=== PATIENT | male | born 1965 | race African-American/Black ===

== ENCOUNTER 2018-08-27 08:30 | Inpatient (IN) | payer OTHER ==
--- NOTE | 2018-08-27 08:55 | HP ---
CIWA Score Nausea/Vomitin Muscle Tremors: 2 Anxiety: 2 Agitation: 2 Paroxysmal Sweats: 1-Minimal Palms Moist Orientation: 0-Oriented Tacttile Disturbances: 1-Very Mild Itch/Numbness Auditory Disturbances: 1-Very Mild Visual Disturbances: 0-None Headache: 2-Mild CIWA-Ar Total Score: 13 - Admission Criteria OASAS Guidelines: Admission for Medically Managed Detox: Requires at least one of the followin. CIWA greater than 12 2. Seizures within the past 24 hours 3. Delirium tremens within the past 24 hours 4. Hallucinations within the past 24 hours 5. Acute intervention needed for co occurring medical disorder 6. Acute intervention needed for co occurring psychiatric disorder 7. Severe withdrawal that cannot be handled at a lower level of care (continued vomiting, continued diarrhea, abnormal vital signs) requiring intravenous medication and/or fluids 8. Patient presents the following: CIWA greater than 12 Admission Criteria Met: Admission criteria met Admission ROS S - HPI Chief Complaint: i need help to stop drinking alcohol and cocaine Allergies/Adverse Reactions: Allergies Allergy/AdvReac Type Severity Reaction Status Date / Time penicillin G Allergy Severe cramps Verified 08/27/18 09:36 History of Present Illness: this 53 years old male with alcohol and cocaine dependence,seeking detox, withdrawal symptom last night,clear to come in for detox, multiple admissions in detox but keep relapsing coughing for 2 week,and removal of splinter of right foot on tues 08/23/18 , supposed to take antibiotics but non compliance smoke 10 cigarette weight loss hiv since 2016,follow up with md at urgent care history of depression,no medication longest period of sobriety 1 year plan to go to rehab after detox - Ebola screening Have you traveled outside of the country in the last 21 days: No (N) Have you had contact with anyone from an Ebola affected area: No Do you have a fever: No - Review of Systems Constitutional: Loss of Appetite, Night Sweats, Changes in sleep, Weakness, Unintentional Wgt. Loss EENT: reports: Tearing, Nose Congestion, Other (coughing for 2 weeks) Respiratory: reports: Cough Cardiac: reports: No Symptoms Reported GI: reports: Nausea, Poor Appetite, Abdominal cramping : reports: No Symptoms Reported Musculoskeletal: reports: Back Pain, Muscle Pain Integumentary: reports: Dryness Neuro: reports: Headache, Tremors Endocrine: reports: No Symptoms Reported Hematology: reports: No Symptoms Reported, Other (his) Psychiatric: reports: No Sypmtoms Reported, Judgement Intact, Mood/Affect Appropiate, Orientated x3, Depressed Other Systems: Reviewed and Negative Patient History - Patient Medical History Hx Anemia: No Hx Asthma: No Hx Chronic Obstructive Pulmonary Disease (COPD): No Hx Cancer: No Hx Cardiac Disorders: No Hx Congestive Heart Failure: No Hx Hypertension: No Hx Hypercholesterolemia: No Hx Pacemaker: No HX Cerebrovascular Accident: No Hx Seizures: No Hx Dementia: No Hx Diabetes: No Hx Gastrointestinal Disorders: No Hx Liver Disease: No Hx Genitourinary Disorders: No Hx Sexually Transmitted Disorders: Yes (syphilis treated 1999) Hx Renal Disease (ESRD): No Hx Thyroid Disease: No Hx Human Immunodeficiency Virus (HIV): Yes (since 2015) Hx Hepatitis C: No Hx Depression: Yes Hx Suicide Attempt: No Hx Bipolar Disorder: No Hx Schizophrenia: No Other Medical History: no suicidal,no homicidal,insomnia - Patient Surgical History Past Surgical History: Yes Hx Neurologic Surgery: No Hx Cataract Extraction: No Hx Cardiac Surgery: No Hx Lung Surgery: No Hx Breast Surgery: No Hx Breast Biopsy: No Hx Abdominal Surgery: No Hx Appendectomy: Yes (at age of [age] years old) Hx Cholecystectomy: No Hx Genitourinary Surgery: No Hx Section: No Hx Orthopedic Surgery: No Anesthesia Reaction: No - PPD History Documented Results: Positive w/o proof Implanted On Prior [facility] Admission?: No PPD to be Administered?: No - Smoking Cessation Smoking history: Current every day smoker Have you smoked in the past 12 months: Yes Aproximately how many cigarettes per day: 10 Hx Chewing Tobacco Use: No Initiated information on smoking cessation: Yes 'Breaking Loose' booklet given: 08/27/18 - Substance & Tx. History Hx Alcohol Use: Yes Hx Substance Use: Yes Substance Use Type: Alcohol, Cocaine Hx Substance Use Treatment: Yes ([facility] 08/05/15 to 08/13/15) - Substances Abused Alcohol Route: Oral Frequency: Daily Amount used: 1 pint of vodka/6 packs of 12 ozs of beer Age of first use: 12 Date of Last Use: 08/26/18 Cocaine Route: Smoking Frequency: Daily Amount used: 100$ Age of first use: 32 Date of Last Use: 08/26/18 Family Disease History - Family Disease History Family History: Denies Admission Physical Exam [facility] - Vital Signs Vital Signs: Vital Signs Temperature 98.1 F 08/27/18 09:06 Pulse Rate 18 L 08/27/18 09:06 Respiratory Rate 74 H 08/27/18 09:06 Blood Pressure 129/71 08/27/18 09:06 O2 Sat by Pulse Oximetry (%) - Physical General Appearance: Yes: Moderate Distress, Tremorous, Irritable, Sweating, Anxious HEENTM: Yes: Normal ENT Inspection, BOB, Pharynx Normal Respiratory: Yes: Lungs Clear, Normal Breath Sounds, No Respiratory Distress Neck: Yes: Within Normal Limits, Supple, Trachea in good position Breast: Yes: Within Normal Limits, Axillae mass/lump present Cardiology: Yes: Regular Rhythm, Regular Rate, S1, S2 Abdominal: Yes: Within Normal Limits, Normal Bowel Sounds, Non Tender, Soft, Surgical Scar Genitourinary: Yes: Within Normal Limits Back: Yes: Muscle Spasm Musculoskeletal: Yes: Back pain, Muscle Pain Extremities: Yes: Tremors, Other (puncture wound of right foot plantar surface,s /p removal of slinter at [place] on 08/23/18) Neurological: Yes: 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 (4) Nicotine dependence Current Visit: No Status: Chronic Qualifiers: Nicotine product type: cigarettes (5) PPD positive Current Visit: No Status: Chronic (6) Puncture wound of right foot Current Visit: Yes Status: Acute (7) Foreign body in right foot Current Visit: Yes Status: Acute (8) History of syphilis Current Visit: Yes Status: Acute (9) Depression Current Visit: Yes Status: Acute (10) Weight loss Current Visit: Yes Status: Acute Cleared for Admission S - Detox or Rehab [facility] Level of Care: Medically Managed Detox Regimen/Protocol: Librium S Breath Alcohol Content Breath Alcohol Content: 0 Inpatient Rehab Admission - Rehab Decision to Admit Inpatient rehab admission?: No
[2018-08-27 09:07] VITALS: BMI 29.5
[2018-08-27] MEDS ORDERED: chlordiazePOXIDE HCL 25 MG CAPSULE PO PRN (09:41)
[2018-08-27] MEDS ORDERED: MENTHOL/PHENOL 1 EACH UD MM PRN (09:42)
[2018-08-27] MEDS ORDERED: MAGNESIUM HYDROX 2400MG/30ML ORAL SUSPENSION 30 ML CUP PO PRN (09:42)
[2018-08-27] MEDS ORDERED: ACETAMINOPHEN 325 MG TABLET (FP) PO PRN (09:42)
[2018-08-27] MEDS ORDERED: P-EPHED 60MG/TRIPROLIDI 2.5MG TABLET PO PRN (09:42)
[2018-08-27] MEDS ORDERED: guaiFENesin/D-METHORPHAN HB 10 ML UNIT-DOSE CUPS PO PRN (09:42)
[2018-08-27] MEDS ORDERED: hydrOXYzine PAMOATE 50 MG CAPSULE (FP) PO PRN (09:42)
[2018-08-27] MEDS ORDERED: MAG HYDROX/AL HYDROX/SIMETH 30 ML UNIT-DOSE CUP PO PRN (09:42)
[2018-08-27] MEDS ORDERED: LOPERAMIDE HCL 2 MG CAPSULE PO PRN (09:42)
[2018-08-27] MEDS ORDERED: MAGNESIUM CITRATE 300 ML BOTTLE PO PRN (09:42)
[2018-08-27] MEDS ORDERED: IBUPROFEN 400 MG TABLET (FP) PO PRN (09:42)
[2018-08-27] MEDS: BACITRACIN 0.9 GM PACKET TP SCH ×2 (10:52→22:17)
[2018-08-27] MEDS: chlordiazePOXIDE HCL 25 MG CAPSULE PO SCH ×3 (10:52→22:18)
[2018-08-27] MEDS: PRENATAL VITAMINS W/ FOLIC ACID TABLET (FP) PO SCH (10:53)
[2018-08-27] MEDS: SULFAMETHOXAZOLE/TRIMETHOPRIM 800MG/160MG D.S. TABLET PO SCH ×2 (10:53→22:17)
[2018-08-27] MEDS: MELATONIN 5 MG TABLETS PO PRN (22:17)
[2018-08-27] MEDS: THIAMINE HCL 100 MG TABLET (FP) PO SCH (22:18)
[2018-08-28] MEDS: chlordiazePOXIDE HCL 25 MG CAPSULE PO SCH ×4 (05:29→22:15)
[2018-08-28] MEDS: PRENATAL VITAMINS W/ FOLIC ACID TABLET (FP) PO SCH (10:16)
[2018-08-28] MEDS: BACITRACIN 0.9 GM PACKET TP SCH ×2 (10:16→22:15)
[2018-08-28] MEDS: SULFAMETHOXAZOLE/TRIMETHOPRIM 800MG/160MG D.S. TABLET PO SCH ×2 (10:16→22:15)
[2018-08-28 10:51] LABS: HEMATOCRIT 41.6 % (35.4-49); HEMOGLOBIN 14.2 GM/dL (11.7-16.9); MCH 29.4 pg (25.7-33.7); MCHC 34.1 g/dl (32.0-35.9); MEAN PLT VOLUME 9.8 fl (7.5-11.1); PLATELET COUNT 207 K/MM3 (134-434); RBC 4.84 M/mm3 (4.00-5.60); RDW 12.8 % (11.9-15.9); WHITE BLOOD COUNT 4.6 K/mm3 (4.0-10.0)
[2018-08-28 11:11] LABS: ALBUMIN 3.4 g/dl (3.4-5.0); ALK PHOS 93 U/L (45-117); ANION GAP 8 MMOL/L (8-16); BILIRUBIN,TOTAL 0.7 mg/dL (0.2-1); BLOOD UREA NITROGEN 10 mg/dL (7-18); CHLORIDE 110 mmol/L (98-107); CO2 21 mmol/L (21-32); GLUCOSE,RANDOM 104 mg/dL (74-106); SGOT/AST 17 U/L (15-37); SGPT/ALT 29 U/L (13-61); SODIUM 139 mmol/L (136-145)
[2018-08-28 11:26] LABS: RPR REACTIVE 1:1 (NONREACTIVE)
[2018-08-28 11:27] LABS: TREPONEMA ANTIBODY PREVIOUSLY REACTIVE (NONREACTIVE)
[2018-08-28] MEDS ORDERED: FLU VACCINE QUAD 60 MCG/0.5 ML (MDV 18-19) IM ONE (12:00)
--- NOTE | 2018-08-28 14:35 | PN ---
S CIWA - CIWA Score Nausea/Vomitin-No Nausea/No Vomiting Muscle Tremors: 3 Anxiety: 2 Agitation: 2 Paroxysmal Sweats: 1-Minimal Palms Moist Orientation: 0-Oriented Tacttile Disturbances: 0-None Auditory Disturbances: 0-None Visual Disturbances: 0-None Headache: 1-Very Mild CIWA-Ar Total Score: 9 S Progress Note (SOAP) Subjective: tremor restlessness anxiety sweating Objective: 08/28/18 14:34 Vital Signs Temperature 98 F 08/28/18 14:33 Pulse Rate 75 08/28/18 14:33 Respiratory Rate 20 08/28/18 14:33 Blood Pressure 106/61 08/28/18 14:33 O2 Sat by Pulse Oximetry (%) Laboratory Last Values WBC 4.6 K/mm3 (4.0-10.0) 08/28/18 07:35 RBC 4.84 M/mm3 (4.00-5.60) 08/28/18 07:35 Hgb 14.2 GM/dL (11.7-16.9) 08/28/18 07:35 Hct 41.6 % (35.4-49) 08/28/18 07:35 MCV 86.0 fl (80-96) 08/28/18 07:35 MCH 29.4 pg (25.7-33.7) 08/28/18 07:35 MCHC 34.1 g/dl (32.0-35.9) 08/28/18 07:35 RDW 12.8 % (11.9-15.9) 08/28/18 07:35 Plt Count 207 K/MM3 (134-434) 08/28/18 07:35 MPV 9.8 fl (7.5-11.1) 08/28/18 07:35 Sodium 139 mmol/L (136-145) 08/28/18 07:35 Potassium 4.0 mmol/L (3.5-5.1) 08/28/18 07:35 Chloride 110 mmol/L (98-107) H 08/28/18 07:35 Carbon Dioxide 21 mmol/L (21-32) 08/28/18 07:35 Anion Gap 8 MMOL/L (8-16) 08/28/18 07:35 BUN 10 mg/dL (7-18) 08/28/18 07:35 Creatinine 1.0 mg/dL (0.55-1.3) 08/28/18 07:35 Creat Clearance w eGFR > 60 (>60) 08/28/18 07:35 Random Glucose 104 mg/dL (74-106) 08/28/18 07:35 Calcium 8.0 mg/dL (8.5-10.1) L 08/28/18 07:35 Total Bilirubin 0.7 mg/dL (0.2-1) 08/28/18 07:35 AST 17 U/L (15-37) 08/28/18 07:35 ALT 29 U/L (13-61) 08/28/18 07:35 Alkaline Phosphatase 93 U/L (45-117) 08/28/18 07:35 Total Protein 7.0 g/dl (6.4-8.2) 08/28/18 07:35 Albumin 3.4 g/dl (3.4-5.0) 08/28/18 07:35 RPR Titer Reactive 1:1 (NONREACTIVE) H 08/28/18 07:35 T.pallidum Ab (MHA) Previously reactive (NONREACTIVE) 08/28/18 07:35 lab noted syphilis low Ca++ Assessment: 08/28/18 14:35 alcohol withdrawal sx hypocalcemia Plan: continue detox oscal bid
[2018-08-28] MEDS: THIAMINE HCL 100 MG TABLET (FP) PO SCH (22:15)
[2018-08-28] MEDS: CALCIUM 250MG/VIT-D 125 UNITS 1 COMBO TABLET PO SCH (22:16)
[2018-08-29] MEDS: chlordiazePOXIDE HCL 25 MG CAPSULE PO SCH (05:12)
--- NOTE | 2018-08-29 09:45 | PN ---
S CIWA - CIWA Score Nausea/Vomitin-No Nausea/No Vomiting Muscle Tremors: 2 Anxiety: 3 Agitation: 2 Paroxysmal Sweats: 1-Minimal Palms Moist Orientation: 0-Oriented Tacttile Disturbances: 0-None Auditory Disturbances: 0-None Visual Disturbances: 0-None Headache: 0-None Present CIWA-Ar Total Score: 8 BHS Progress Note (SOAP) Subjective: tremor sweating anxious trouble concentrate Objective: 08/29/18 09:46 Vital Signs Temperature 96.5 F L 08/29/18 09:23 Pulse Rate 75 08/29/18 09:23 Respiratory Rate 18 08/29/18 09:23 Blood Pressure 119/76 08/29/18 09:23 O2 Sat by Pulse Oximetry (%) Laboratory Last Values WBC 4.6 K/mm3 (4.0-10.0) 08/28/18 07:35 RBC 4.84 M/mm3 (4.00-5.60) 08/28/18 07:35 Hgb 14.2 GM/dL (11.7-16.9) 08/28/18 07:35 Hct 41.6 % (35.4-49) 08/28/18 07:35 MCV 86.0 fl (80-96) 08/28/18 07:35 MCH 29.4 pg (25.7-33.7) 08/28/18 07:35 MCHC 34.1 g/dl (32.0-35.9) 08/28/18 07:35 RDW 12.8 % (11.9-15.9) 08/28/18 07:35 Plt Count 207 K/MM3 (134-434) 08/28/18 07:35 MPV 9.8 fl (7.5-11.1) 08/28/18 07:35 Sodium 139 mmol/L (136-145) 08/28/18 07:35 Potassium 4.0 mmol/L (3.5-5.1) 08/28/18 07:35 Chloride 110 mmol/L (98-107) H 08/28/18 07:35 Carbon Dioxide 21 mmol/L (21-32) 08/28/18 07:35 Anion Gap 8 MMOL/L (8-16) 08/28/18 07:35 BUN 10 mg/dL (7-18) 08/28/18 07:35 Creatinine 1.0 mg/dL (0.55-1.3) 08/28/18 07:35 Creat Clearance w eGFR > 60 (>60) 08/28/18 07:35 Random Glucose 104 mg/dL (74-106) 08/28/18 07:35 Calcium 8.0 mg/dL (8.5-10.1) L 08/28/18 07:35 Total Bilirubin 0.7 mg/dL (0.2-1) 08/28/18 07:35 AST 17 U/L (15-37) 08/28/18 07:35 ALT 29 U/L (13-61) 08/28/18 07:35 Alkaline Phosphatase 93 U/L (45-117) 08/28/18 07:35 Total Protein 7.0 g/dl (6.4-8.2) 08/28/18 07:35 Albumin 3.4 g/dl (3.4-5.0) 08/28/18 07:35 RPR Titer Reactive 1:1 (NONREACTIVE) H 08/28/18 07:35 T.pallidum Ab (MHA) Previously reactive (NONREACTIVE) 08/28/18 07:35 lab noted Assessment: 08/29/18 09:47 alcohol withdrawal sx hiv Plan: continue detox encourage hiv medication adherence keep medication list in wallet bring-in medication list and bottle of medication to aftercare appointment update medication list when change of medication
[2018-08-29] MEDS: SULFAMETHOXAZOLE/TRIMETHOPRIM 800MG/160MG D.S. TABLET PO SCH ×2 (10:17→22:08)
[2018-08-29] MEDS: PRENATAL VITAMINS W/ FOLIC ACID TABLET (FP) PO SCH (10:17)
[2018-08-29] MEDS: CALCIUM 250MG/VIT-D 125 UNITS 1 COMBO TABLET PO SCH ×2 (10:18→22:08)
[2018-08-29] MEDS: chlordiazePOXIDE 5 MG CAPSULE PO SCH ×3 (10:18→22:09)
[2018-08-29] MEDS: BACITRACIN 0.9 GM PACKET TP SCH ×2 (12:03→22:08)
[2018-08-29] MEDS: THIAMINE HCL 100 MG TABLET (FP) PO SCH (22:08)
[2018-08-29] MEDS: MELATONIN 5 MG TABLETS PO PRN (22:08)
[2018-08-30] MEDS: chlordiazePOXIDE 5 MG CAPSULE PO SCH (06:01)
[2018-08-30 09:19] VITALS: BP 106/60; PULSE 73; TEMP 97.9
--- NOTE | 2018-08-30 09:51 | PN ---
S CIWA - CIWA Score Nausea/Vomitin-No Nausea/No Vomiting Muscle Tremors: 1-None Visible, but [place] Anxiety: 1-Mildly Anxious Agitation: 1-Slight > Activity Paroxysmal Sweats: 1-Minimal Palms Moist Orientation: 0-Oriented Tacttile Disturbances: 0-None Auditory Disturbances: 0-None Visual Disturbances: 0-None Headache: 1-Very Mild CIWA-Ar Total Score: 5 B[facility] Progress Note (SOAP) Subjective: feeling better less tremor mild sweating sleep better at night more energy social with peers in day room Objective: 08/30/18 09:52 Vital Signs Temperature 97.9 F 08/30/18 09:18 Pulse Rate 73 08/30/18 09:18 Respiratory Rate 18 08/30/18 09:18 Blood Pressure 106/60 08/30/18 09:18 O2 Sat by Pulse Oximetry (%) Laboratory Last Values WBC 4.6 K/mm3 (4.0-10.0) 08/28/18 07:35 RBC 4.84 M/mm3 (4.00-5.60) 08/28/18 07:35 Hgb 14.2 GM/dL (11.7-16.9) 08/28/18 07:35 Hct 41.6 % (35.4-49) 08/28/18 07:35 MCV 86.0 fl (80-96) 08/28/18 07:35 MCH 29.4 pg (25.7-33.7) 08/28/18 07:35 MCHC 34.1 g/dl (32.0-35.9) 08/28/18 07:35 RDW 12.8 % (11.9-15.9) 08/28/18 07:35 Plt Count 207 K/MM3 (134-434) 08/28/18 07:35 MPV 9.8 fl (7.5-11.1) 08/28/18 07:35 Sodium 139 mmol/L (136-145) 08/28/18 07:35 Potassium 4.0 mmol/L (3.5-5.1) 08/28/18 07:35 Chloride 110 mmol/L (98-107) H 08/28/18 07:35 Carbon Dioxide 21 mmol/L (21-32) 08/28/18 07:35 Anion Gap 8 MMOL/L (8-16) 08/28/18 07:35 BUN 10 mg/dL (7-18) 08/28/18 07:35 Creatinine 1.0 mg/dL (0.55-1.3) 08/28/18 07:35 Creat Clearance w eGFR > 60 (>60) 08/28/18 07:35 Random Glucose 104 mg/dL (74-106) 08/28/18 07:35 Calcium 8.0 mg/dL (8.5-10.1) L 08/28/18 07:35 Total Bilirubin 0.7 mg/dL (0.2-1) 08/28/18 07:35 AST 17 U/L (15-37) 08/28/18 07:35 ALT 29 U/L (13-61) 08/28/18 07:35 Alkaline Phosphatase 93 U/L (45-117) 08/28/18 07:35 Total Protein 7.0 g/dl (6.4-8.2) 08/28/18 07:35 Albumin 3.4 g/dl (3.4-5.0) 08/28/18 07:35 RPR Titer Reactive 1:1 (NONREACTIVE) H 08/28/18 07:35 T.pallidum Ab (MHA) Previously reactive (NONREACTIVE) 08/28/18 07:35 lab noted Assessment: 08/30/18 09:52 mild alcohol withdrawal sx low Ca++ Plan: continue detox oscal continue encourage calcium rich food or over the counter calcium supplement also follow up with infectious disease specialist with calcium serum level
[2018-08-30] MEDS: PRENATAL VITAMINS W/ FOLIC ACID TABLET (FP) PO SCH ×2 (10:29→10:35)
[2018-08-30] MEDS: SULFAMETHOXAZOLE/TRIMETHOPRIM 800MG/160MG D.S. TABLET PO SCH ×2 (10:29→10:37)
[2018-08-30] MEDS: CALCIUM 250MG/VIT-D 125 UNITS 1 COMBO TABLET PO SCH ×2 (10:29→10:34)
[2018-08-30] MEDS: BACITRACIN 0.9 GM PACKET TP SCH (10:29)
[2018-08-30] MEDS ORDERED: chlordiazePOXIDE HCL 10 MG CAPSULE PO SCH (11:00)
--- NOTE | 2018-08-30 11:11 | DS ---
[facility] Detox Discharge Summary Admission Date: 08/27/18 Discharge Date: 08/30/18 - History Present History: Alcohol Dependence - Physical Exam Results Vital Signs: Vital Signs Temperature 97.9 F 08/30/18 09:18 Pulse Rate 73 08/30/18 09:18 Respiratory Rate 18 08/30/18 09:18 Blood Pressure 106/60 08/30/18 09:18 O2 Sat by Pulse Oximetry (%) Pertinent Admission Physical Exam Findings: 53 years old male admitted on 08/27/18 for alcohol withdrawal stabilization feeling better today preferred begin alcohol rehab today, reported that alcohol withdrawal symptoms are manageable multidisciplinary team effort aftercare [facility] Laboratory Last Values WBC 4.6 K/mm3 (4.0-10.0) 08/28/18 07:35 RBC 4.84 M/mm3 (4.00-5.60) 08/28/18 07:35 Hgb 14.2 GM/dL (11.7-16.9) 08/28/18 07:35 Hct 41.6 % (35.4-49) 08/28/18 07:35 MCV 86.0 fl (80-96) 08/28/18 07:35 MCH 29.4 pg (25.7-33.7) 08/28/18 07:35 MCHC 34.1 g/dl (32.0-35.9) 08/28/18 07:35 RDW 12.8 % (11.9-15.9) 08/28/18 07:35 Plt Count 207 K/MM3 (134-434) 08/28/18 07:35 MPV 9.8 fl (7.5-11.1) 08/28/18 07:35 Sodium 139 mmol/L (136-145) 08/28/18 07:35 Potassium 4.0 mmol/L (3.5-5.1) 08/28/18 07:35 Chloride 110 mmol/L (98-107) H 08/28/18 07:35 Carbon Dioxide 21 mmol/L (21-32) 08/28/18 07:35 Anion Gap 8 MMOL/L (8-16) 08/28/18 07:35 BUN 10 mg/dL (7-18) 08/28/18 07:35 Creatinine 1.0 mg/dL (0.55-1.3) 08/28/18 07:35 Creat Clearance w eGFR > 60 (>60) 08/28/18 07:35 Random Glucose 104 mg/dL (74-106) 08/28/18 07:35 Calcium 8.0 mg/dL (8.5-10.1) L 08/28/18 07:35 Total Bilirubin 0.7 mg/dL (0.2-1) 08/28/18 07:35 AST 17 U/L (15-37) 08/28/18 07:35 ALT 29 U/L (13-61) 08/28/18 07:35 Alkaline Phosphatase 93 U/L (45-117) 08/28/18 07:35 Total Protein 7.0 g/dl (6.4-8.2) 08/28/18 07:35 Albumin 3.4 g/dl (3.4-5.0) 08/28/18 07:35 RPR Titer Reactive 1:1 (NONREACTIVE) H 08/28/18 07:35 T.pallidum Ab (MHA) Previously reactive (NONREACTIVE) 08/28/18 07:35 lab noted - Treatment Hospital Course: Detox Protocol Followed, Detoxed Safely, Responded well, Discharged Condition Good, Rehab Referral Accepted Patient has Accepted a Rehab Referral to: [facility] - Medication Discharge Medications: Ambulatory Orders Elviteg/Cob/Emtri/Tenof Alafen [Genvoya (Non-Formulary)] 1 each PO DAILY - Diagnosis (1) Syphilis Current Visit: Yes Status: Chronic (2) HIV disease Current Visit: Yes Status: Chronic (3) Nicotine dependence Current Visit: Yes Status: Acute Qualifiers: Nicotine product type: cigarettes Substance use status: in withdrawal Qualified Code(s): F17.213 - Nicotine dependence, cigarettes, with withdrawal (4) PPD positive Current Visit: Yes Status: Resolved - AMA Did Patient Leave Against Medical Advice: No
[2018-08-30 13:09] LABS: URINE APPEARANCE CLEAR; URINE BILIRUBIN NEGATIVE (<2.0 mg/dL); URINE COLOR LTYELLOW; URINE GLUCOSE (UA) NEGATIVE (NEGATIVE); URINE KETONE NEGATIVE (NEGATIVE); URINE LEUK ESTERASE NEGATIVE (NEGATIVE); URINE NITRITE NEGATIVE (NEGATIVE); URINE PROTEIN NEGATIVE (NEGATIVE); URINE UROBILINOGEN NEGATIVE mg/dL (0.2-1.0)
== END 2018-08-30 12:55 | disposition other institution (70) | DRG 774 ==
LOC: YASAS 08:30 → Y3N 09:39
PROVIDERS: ADMIT Surgery; ATTEND Surgery
PROC: HZ2ZZZZ Detoxification Services for Substance Abuse Treatment (ICD-10-PCS; principal; 2018-08-27)
DX: F10.230 Alcohol dependence with withdrawal, uncomplicated (principal); F14.20 Cocaine dependence, uncomplicated; F17.210 Nicotine dependence, cigarettes, uncomplicated; F32.9 Major depressive disorder, single episode, unspecified; Z21 Asymptomatic human immunodeficiency virus [HIV] infection status; Z53.9 Procedure and treatment not carried out, unspecified reason; E83.51 Hypocalcemia; R76.11 Nonspecific reaction to tuberculin skin test without active tuberculosis; R63.4 Abnormal weight loss; Z68.29 Body mass index [BMI] 29.0-29.9, adult; Z88.0 Allergy status to penicillin
CPT/HCPCS: 36415; 71046-TC-FY; 80053; 81003; 85027; 86593; 86780

== ENCOUNTER 2018-08-30 13:01 | Inpatient (IN) | payer OTHER ==
--- NOTE | 2018-08-30 11:12 | HP ---
PRAKASH AREVALO Rehab Assess/Revision - Admission History Admitted to Rehab from: [facility] Date of Admission to Rehab: 08/30/18 - Findings Detox History & Physical reviewed: Yes Concur with findings: Yes Comments/Additional Findings: transferred from detox to rehab admission as per protocol Inpatient Rehab Admission - Rehab Decision to Admit Inpatient rehab admission?: Yes - Initial Determination Are CD services needed?: Yes Free of communicable disease: Yes Not in need of hospitalization: Yes - Rehab Admission Criteria Previous failed treatment: Yes Poor recovery environment: Yes Comorbidities: Yes Lacks judgement: No Patient is meeting Inpatient Rehab admission criteria:: Yes
[~2018-08-30 13:01] MED LIST: ACETAMINOPHEN 325 MG TABLET (FP) PO PRN; IBUPROFEN 400 MG TABLET (FP) PO PRN; LOPERAMIDE HCL 2 MG CAPSULE PO PRN; MAG HYDROX/AL HYDROX/SIMETH 30 ML UNIT-DOSE CUP PO PRN; MAGNESIUM CITRATE 300 ML BOTTLE PO PRN; MAGNESIUM HYDROX 2400MG/30ML ORAL SUSPENSION 30 ML CUP PO PRN; MENTHOL/PHENOL 1 EACH UD MM PRN; NICOTINE 14 MG/24 HOURS TOPICAL PATCH TD PRN; NICOTINE POLACRILEX 2 MG GUM BC PRN; P-EPHED 60MG/TRIPROLIDI 2.5MG TABLET PO PRN; guaiFENesin/D-METHORPHAN HB 10 ML UNIT-DOSE CUPS PO PRN
[2018-08-30] MEDS: THIAMINE HCL 100 MG TABLET (FP) PO SCH (21:36)
[2018-08-30] MEDS: MELATONIN 5 MG TABLETS PO PRN (21:36)
[2018-08-31] MEDS: PRENATAL VITAMINS W/ FOLIC ACID TABLET (FP) PO SCH (10:44)
[2018-08-31] MEDS: MELATONIN 5 MG TABLETS PO PRN (21:32)
[2018-08-31] MEDS: THIAMINE HCL 100 MG TABLET (FP) PO SCH (21:32)
[2018-09-01] MEDS: PRENATAL VITAMINS W/ FOLIC ACID TABLET (FP) PO SCH (10:07)
--- NOTE | 2018-09-01 15:54 | PN ---
[facility] Progress Note Note: Client states he does not want to take his HIV medications while he is in rehab. He wants to concentrate on his sobriety. His HIV regimen prescription was recently refilled and he has a supply for home when he is discharged. Encouraged patient to follow up with HIV specialist and PCP.
[2018-09-01] MEDS: MELATONIN 5 MG TABLETS PO PRN (21:03)
[2018-09-01] MEDS: THIAMINE HCL 100 MG TABLET (FP) PO SCH (21:03)
[2018-09-02] MEDS: PRENATAL VITAMINS W/ FOLIC ACID TABLET (FP) PO SCH (09:55)
[2018-09-02] MEDS: THIAMINE HCL 100 MG TABLET (FP) PO SCH (23:40)
[2018-09-02] MEDS: MELATONIN 5 MG TABLETS PO PRN (23:40)
[2018-09-03] MEDS: PRENATAL VITAMINS W/ FOLIC ACID TABLET (FP) PO SCH (10:04)
[2018-09-03] MEDS: THIAMINE HCL 100 MG TABLET (FP) PO SCH (21:16)
[2018-09-03] MEDS: MELATONIN 5 MG TABLETS PO PRN (21:16)
[2018-09-04] MEDS: PRENATAL VITAMINS W/ FOLIC ACID TABLET (FP) PO SCH (09:56)
[2018-09-04] MEDS: THIAMINE HCL 100 MG TABLET (FP) PO SCH (21:01)
[2018-09-04] MEDS: MELATONIN 5 MG TABLETS PO PRN (21:02)
[2018-09-05] MEDS: PRENATAL VITAMINS W/ FOLIC ACID TABLET (FP) PO SCH (09:55)
[2018-09-05] MEDS: THIAMINE HCL 100 MG TABLET (FP) PO SCH (21:49)
[2018-09-05] MEDS: MELATONIN 5 MG TABLETS PO PRN (21:49)
[2018-09-06] MEDS: PRENATAL VITAMINS W/ FOLIC ACID TABLET (FP) PO SCH (09:51)
[2018-09-06] MEDS: THIAMINE HCL 100 MG TABLET (FP) PO SCH (21:12)
[2018-09-06] MEDS: MELATONIN 5 MG TABLETS PO PRN (21:13)
[2018-09-07] MEDS: PRENATAL VITAMINS W/ FOLIC ACID TABLET (FP) PO SCH (10:41)
[2018-09-07] MEDS: THIAMINE HCL 100 MG TABLET (FP) PO SCH (21:55)
[2018-09-08] MEDS: PRENATAL VITAMINS W/ FOLIC ACID TABLET (FP) PO SCH (11:19)
[2018-09-08] MEDS: THIAMINE HCL 100 MG TABLET (FP) PO SCH (21:54)
[2018-09-09] MEDS: PRENATAL VITAMINS W/ FOLIC ACID TABLET (FP) PO SCH (10:26)
[2018-09-09] MEDS: THIAMINE HCL 100 MG TABLET (FP) PO SCH (21:45)
[2018-09-10] MEDS: PRENATAL VITAMINS W/ FOLIC ACID TABLET (FP) PO SCH (10:13)
[2018-09-10] MEDS: THIAMINE HCL 100 MG TABLET (FP) PO SCH (23:04)
[2018-09-11] MEDS: PRENATAL VITAMINS W/ FOLIC ACID TABLET (FP) PO SCH (09:47)
[2018-09-11] MEDS: THIAMINE HCL 100 MG TABLET (FP) PO SCH (22:34)
[2018-09-12] MEDS: PRENATAL VITAMINS W/ FOLIC ACID TABLET (FP) PO SCH (10:53)
[2018-09-12] MEDS: THIAMINE HCL 100 MG TABLET (FP) PO SCH (21:55)
[2018-09-13 07:14] VITALS: BP 131/72; PULSE 75; TEMP 97
[2018-09-13] MEDS: PRENATAL VITAMINS W/ FOLIC ACID TABLET (FP) PO SCH (09:19)
== END 2018-09-13 09:25 | disposition home or self-care (01) | DRG 772 ==
LOC: YASAS 13:01 → Y3W 13:02
PROVIDERS: ADMIT Neuromusculoskeletal Medicine & OMM; ATTEND Neuromusculoskeletal Medicine & OMM
PROC: HZ42ZZZ Group Counseling for Substance Abuse Treatment, Cognitive-Behavioral (ICD-10-PCS; principal; 2018-08-30)
DX: F10.20 Alcohol dependence, uncomplicated (principal); F14.20 Cocaine dependence, uncomplicated; F17.210 Nicotine dependence, cigarettes, uncomplicated; Z21 Asymptomatic human immunodeficiency virus [HIV] infection status; Z88.0 Allergy status to penicillin; Z91.14 Patient's other noncompliance with medication regimen; Z87.438 Personal history of other diseases of male genital organs

== ENCOUNTER 2019-12-16 08:56 | Inpatient (IN) | payer OTHER ==
--- NOTE | 2019-12-16 10:41 | BHS.RME ---
Substance Use & Tx History - Substance Use History Alcohol Substance amount: 4 pints of vodka/6 packs of 24 ozs of beer Frequency of use: Daily Substance route: Oral Date of Last Use: 12/15/19 Cocaine-Crack Substance amount: crack 50$per use Frequency of use: Less than 3 times per week Date of Last Use: 12/15/19 - Last Treatment Date of last treatment: 09/09/18 to 09/13/18 [facility] Where was last treatment: Rehab Physical/Psych/Mental Status - Behavior General Behavior: Increased activity (restlessness, agitation) Eye Contact: Normal - Cooperativeness Cooperativeness: Cooperative - Thinking Thought Processes: Logical Thought content: Future oriented - Physical Health Problems Is patient presently having any pain?: No Does patient presently have any injuries (include location): No Does patient currently have a fever: No CIWA Nausea/Vomitin Muscle Tremors: 3 Anxiety: 3 Agitation: 2 Paroxysmal Sweats: No Perspiration Orientation: 0-Oriented Tacttile Disturbances: 1-Very Mild Itch/Numbness Auditory Disturbances: 0-None Visual Disturbances: 1-Very Mild Sensitivity Headache: 2-Mild CIWA-Ar Total Score: 14
--- NOTE | 2019-12-16 10:48 | HP ---
CIWA Score Nausea/Vomitin Muscle Tremors: 3 Anxiety: 3 Agitation: 2 Paroxysmal Sweats: No Perspiration Orientation: 0-Oriented Tacttile Disturbances: 1-Very Mild Itch/Numbness Auditory Disturbances: 0-None Visual Disturbances: 1-Very Mild Sensitivity Headache: 2-Mild CIWA-Ar Total Score: 14 - Admission Criteria OASAS Guidelines: Admission for Medically Managed Detox: Requires at least one of the followin. CIWA greater than 12 2. Seizures within the past 24 hours 3. Delirium tremens within the past 24 hours 4. Hallucinations within the past 24 hours 5. Acute intervention needed for co occurring medical disorder 6. Acute intervention needed for co occurring psychiatric disorder 7. Severe withdrawal that cannot be handled at a lower level of care (continued vomiting, continued diarrhea, abnormal vital signs) requiring intravenous medication and/or fluids 8. 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 Infectious Disease: Yes: HIV (since 2015) Psych: Yes: Depression - Past Surgical History Past Surgical History: Yes: None - Smoking History Smoking history: Current every day smoker Have you smoked in the past 12 months: Yes Aproximately how many cigarettes per day: 10 - Alcohol/Substance Use Hx Alcohol Use: Yes History of Substance Use: reports: Cocaine - Social History Usual Living Arrangement: Yes: Other (living with brother) Do you think of yourself as: Straight/Heterosexual ADL: Support Services Occupation: unempolyed History of Recent Travel: No Other Social History: unemployed,no legal issue,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[employer] Admission ROS S - HPI Chief Complaint: i need help to stop drinking alcohol and drug Allergies/Adverse Reactions: Allergies Allergy/AdvReac Type Severity Reaction Status Date / Time penicillin G Allergy Severe cramps Verified 12/16/19 11:32 History of Present Illness: this 54 years old male with alcohol and cocaine dependence seeking detox,withdrawal symptom, last treatment rehab 09/09/18 to 09/13/09 seizure last 2019 syncope hiv since 2016 on medication weight loss nicotine dependence longest sobriety 14 months plan for rehab living with brother,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,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 Exam Limitations: No Limitations - Ebola screening Have you traveled outside of the country in the last 21 days: No Have you had contact with anyone from an Ebola affected area: No Have you been sick,other than usual withdrawal symptoms: No Do you have a fever: No - Review of Systems Constitutional: Loss of Appetite, Malaise, Night Sweats, Changes in sleep, Weakness EENT: reports: Nose Congestion Respiratory: reports: No Symptoms reported Cardiac: reports: No Symptoms Reported GI: reports: Nausea, Poor Appetite, Abdominal cramping : reports: No Symptoms Reported Musculoskeletal: reports: Back Pain, Muscle Pain Integumentary: reports: Dryness Neuro: reports: Headache, Tremors Endocrine: reports: No Symptoms Reported Hematology: reports: No Symptoms Reported Psychiatric: reports: No Sypmtoms Reported, Judgement Intact, Mood/Affect Appropiate, Orientated x3 Other Systems: Reviewed and Negative Patient History - Patient Medical History Hx Anemia: No Hx Asthma: No Hx Chronic Obstructive Pulmonary Disease (COPD): No Hx Cancer: No Hx Cardiac Disorders: No Hx Congestive Heart Failure: No Hx Hypertension: No Hx Hypercholesterolemia: No Hx Pacemaker: No HX Cerebrovascular Accident: No Hx Seizures: No Hx Dementia: No Hx Diabetes: No Hx Gastrointestinal Disorders: No Hx Liver Disease: No Hx Genitourinary Disorders: No Hx Sexually Transmitted Disorders: Yes (history of syphilis) Hx Renal Disease (ESRD): No Hx Thyroid Disease: No Hx Human Immunodeficiency Virus (HIV): Yes (since 2015) Hx Hepatitis C: No Hx Depression: Yes Hx Suicide Attempt: No Hx Bipolar Disorder: No Hx Schizophrenia: No Other Medical History: no suicidal,no homicidal - Patient Surgical History Past Surgical History: Yes Hx Neurologic Surgery: No Hx Cataract Extraction: No Hx Cardiac Surgery: No Hx Lung Surgery: No Hx Breast Surgery: No Hx Breast Biopsy: No Hx Abdominal Surgery: No Hx Appendectomy: Yes (at age of [age] years old) Hx Cholecystectomy: No Hx Genitourinary Surgery: No Hx Section: No Hx Orthopedic Surgery: No Anesthesia Reaction: No - PPD History Documented Results: Positive w/o proof Implanted On Prior [facility] Admission?: No PPD to be Administered?: No - Smoking Cessation Smoking history: Current every day smoker Have you smoked in the past 12 months: Yes Aproximately how many cigarettes per day: 10 Hx Chewing Tobacco Use: No Initiated information on smoking cessation: Yes 'Breaking Loose' booklet given: 12/16/19 - Substance & Tx. History Hx Alcohol Use: Yes Hx Substance Use: Yes Substance Use Type: Alcohol, Cocaine Hx Substance Use Treatment: Yes ([facility] to 11/13/18) - Substances abused Alcohol Substance route: Oral Frequency: Daily Amount used: 4 pints of vodka/ packs of 24 ozs of beer Age of first use: 14 Date of last use: 12/15/19 Crack Frequency: 1-2 times per week Amount used: 50 $ Age of first use: 32 Date of last use: 12/15/19 Admission Physical Exam S - Vital Signs Vital Signs: Vital Signs Temperature 97.5 F L 12/17/19 05:38 Pulse Rate 65 12/17/19 05:38 Respiratory Rate 20 12/17/19 05:38 Blood Pressure 118/78 12/17/19 05:38 O2 Sat by Pulse Oximetry (%) 99 12/17/19 05:38 - Physical General Appearance: Yes: Moderate Distress, Tremorous, Irritable, Sweating, Anxious HEENTM: Yes: Normal ENT Inspection, Pharynx Normal Respiratory: Yes: Lungs Clear, Normal Breath Sounds, No Respiratory Distress Neck: Yes: Within Normal Limits, Supple, Trachea in good position Breast: Yes: Within Normal Limits Cardiology: Yes: Within Normal Limits, Regular Rhythm, Regular Rate, S1, S2 Abdominal: Yes: Within Normal Limits, Normal Bowel Sounds, Non Tender, Flat, Soft Genitourinary: Yes: Within Normal Limits Back: Yes: Muscle Spasm Musculoskeletal: Yes: Back pain, Muscle Pain Extremities: Yes: Tremors Neurological: Yes: Within Normal Limits, Alert, Motor Strength 5/5 Integumentary: Yes: Dry Lymphatic: Yes: Within Normal Limits - Diagnostic (1) Alcohol dependence with uncomplicated withdrawal Current Visit: No Status: Chronic (2) Cocaine dependence Current Visit: No Status: Chronic Qualifiers: Substance use status: uncomplicated Qualified Code(s): F14.20 - Cocaine dependence, uncomplicated (3) History of syphilis Current Visit: No Status: Acute (4) Weight loss Current Visit: No Status: Acute (5) HIV (human immunodeficiency virus infection) Current Visit: No Status: Chronic Qualifiers: HIV symptom status: unspecified Qualified Code(s): B20 - Human i mmunodeficiency virus [HIV] disease (6) History of syphilis Current Visit: Yes Status: Chronic (7) PPD positive Current Visit: No Status: Resolved Cleared for Admission S - Detox or Rehab [facility] Level of Care: Medically Managed Detox Regimen/Protocol: Librium Breathalyzer - Breathalyzer Breathalyzer: 0 Urine Drug Screen - Test Device Lot number: [id number] Expiration date: 01/25/21 - Control Is test valid?: Yes - Results Drug screen NEGATIVE: No Urine drug screen results: PATRICK-Cocaine Inpatient Rehab Admission - Rehab Decision to Admit Inpatient rehab admission?: No
[2019-12-16] MEDS ORDERED: chlordiazePOXIDE HCL 25 MG CAPSULE PO PRN (11:09)
[2019-12-16] MEDS ORDERED: MAGNESIUM CITRATE 300 ML BOTTLE PO PRN (11:09)
[2019-12-16] MEDS ORDERED: ACETAMINOPHEN 325 MG TABLET (FP) PO PRN ×2 (11:09)
[2019-12-16] MEDS ORDERED: IBUPROFEN 400 MG TABLET (FP) PO PRN (11:09)
[2019-12-16] MEDS ORDERED: METHOCARBAMOL 500 MG TABLET PO PRN (11:09)
[2019-12-16] MEDS ORDERED: MAG HYDROX/AL HYDROX/SIMETH 30 ML UNIT-DOSE CUP PO PRN (11:09)
[2019-12-16] MEDS ORDERED: BISMUTH SUBSALICYLATE 524 MG/30 ML UD PO PRN (11:09)
[2019-12-16] MEDS ORDERED: MAGNESIUM HYDROX 2400MG/30ML ORAL SUSPENSION 30 ML CUP PO PRN (11:09)
[2019-12-16] MEDS ORDERED: NICOTINE POLACRILEX 2 MG GUM BUC PRN (11:09)
[2019-12-16] MEDS ORDERED: ONDANSETRON *ODT* 4 MG TABLET SL ONE (11:09)
[2019-12-16] MEDS ORDERED: MENTHOL/PHENOL 1 EACH UD MM PRN (11:09)
[2019-12-16 11:38] VITALS: BMI 33.2
[2019-12-16] MEDS: hydrOXYzine PAMOATE 25 MG CAPSULE (FP) PO SCH ×3 (14:00→23:14)
[2019-12-16] MEDS: NICOTINE 21 MG/24 HOURS TOPICAL PATCH TD SCH (14:00)
[2019-12-16] MEDS: chlordiazePOXIDE HCL 25 MG CAPSULE PO SCH ×2 (17:25→22:23)
[2019-12-16] MEDS: THIAMINE HCL 100 MG TABLET (FP) PO SCH (22:23)
[2019-12-16 22:49] LABS: URINE APPEARANCE TURBID; URINE BILIRUBIN NEGATIVE (NEGATIVE); URINE COLOR YELLOW; URINE GLUCOSE (UA) NEGATIVE (NEGATIVE); URINE KETONE NEGATIVE (NEGATIVE); URINE LEUK ESTERASE NEGATIVE (NEGATIVE); URINE NITRITE NEGATIVE (NEGATIVE); URINE PROTEIN TRACE (NEGATIVE)
[2019-12-16] MEDS: MELATONIN 5 MG TABLETS PO SCH (23:14)
[2019-12-17] MEDS: hydrOXYzine PAMOATE 25 MG CAPSULE (FP) PO SCH ×5 (06:05→22:15)
[2019-12-17] MEDS: chlordiazePOXIDE HCL 25 MG CAPSULE PO SCH ×4 (06:05→22:13)
[2019-12-17 10:00] LABS: HEMATOCRIT 39.6 % (35.4-49); HEMOGLOBIN 12.8 GM/dL (11.7-16.9); MCH 27.5 pg (25.7-33.7); MCHC 32.4 g/dl (32.0-35.9); MEAN CELL VOLUME 84.9 fl (80-96); MEAN PLT VOLUME 9.5 fl (7.5-11.1); PLATELET COUNT 188 K/MM3 (134-434); RBC 4.66 M/mm3 (4.00-5.60); RDW 15.2 % (11.9-15.9); WHITE BLOOD COUNT 5.5 K/mm3 (4.0-10.0)
[2019-12-17 10:09] LABS: ALBUMIN 3.4 g/dl (3.4-5.0); BILIRUBIN,TOTAL 0.8 mg/dL (0.2-1); BLOOD UREA NITROGEN 10.7 mg/dL (7-18); CALCIUM 8.3 mg/dL (8.5-10.1); POTASSIUM 3.7 mmol/L (3.5-5.1); TOT PROT 7.1 g/dl (6.4-8.2)
[2019-12-17] MEDS: NICOTINE 21 MG/24 HOURS TOPICAL PATCH TD SCH (10:25)
[2019-12-17] MEDS: PRENATAL VITAMINS W/ FOLIC ACID TABLET (FP) PO SCH (10:25)
--- NOTE | 2019-12-17 12:05 | PN ---
[facility] CIWA - CIWA Score Nausea/Vomitin-Mild Nausea/No Vomiting Muscle Tremors: 4-Moderate,w/Arms Extend Anxiety: 3 Agitation: 2 Paroxysmal Sweats: No Perspiration Orientation: 0-Oriented Tacttile Disturbances: 0-None Auditory Disturbances: 1-Very Mild Visual Disturbances: 1-Very Mild Sensitivity Headache: 0-None Present CIWA-Ar Total Score: 12 BHS Progress Note (SOAP) Subjective: Complaining of chills, sweats, shakes and anxiety. Objective: 12/17/19 12:02 Vital Signs 12/17/19 12/17/19 05:38 08:44 Temperature 97.5 F L 97.5 F L Pulse Rate 65 72 Respiratory 20 18 Rate Blood Pressure 118/78 121/70 O2 Sat by Pulse 99 Oximetry (%) Laboratory Last Values WBC 5.5 K/mm3 (4.0-10.0) 12/17/19 07:10 RBC 4.66 M/mm3 (4.00-5.60) 12/17/19 07:10 Hgb 12.8 GM/dL (11.7-16.9) 12/17/19 07:10 Hct 39.6 % (35.4-49) 12/17/19 07:10 MCV 84.9 fl (80-96) 12/17/19 07:10 MCH 27.5 pg (25.7-33.7) 12/17/19 07:10 MCHC 32.4 g/dl (32.0-35.9) 12/17/19 07:10 RDW 15.2 % (11.9-15.9) D 12/17/19 07:10 Plt Count 188 K/MM3 (134-434) 12/17/19 07:10 MPV 9.5 fl (7.5-11.1) 12/17/19 07:10 Sodium 141 mmol/L (136-145) 12/17/19 07:10 Potassium 3.7 mmol/L (3.5-5.1) 12/17/19 07:10 Chloride 107 mmol/L (98-107) 12/17/19 07:10 Carbon Dioxide 29 mmol/L (21-32) 12/17/19 07:10 Anion Gap 5 MMOL/L (8-16) L 12/17/19 07:10 BUN 10.7 mg/dL (7-18) 12/17/19 07:10 Creatinine 1.0 mg/dL (0.55-1.3) 12/17/19 07:10 Est GFR (CKD-EPI)AfAm 98.46 12/17/19 07:10 Est GFR (CKD-EPI)NonAf 84.95 12/17/19 07:10 Random Glucose 143 mg/dL (74-106) H 12/17/19 07:10 Calcium 8.3 mg/dL (8.5-10.1) L 12/17/19 07:10 Total Bilirubin 0.8 mg/dL (0.2-1) 12/17/19 07:10 AST 17 U/L (15-37) 12/17/19 07:10 ALT 32 U/L (13-61) 12/17/19 07:10 Alkaline Phosphatase 73 U/L (45-117) 12/17/19 07:10 Total Protein 7.1 g/dl (6.4-8.2) 12/17/19 07:10 Albumin 3.4 g/dl (3.4-5.0) 12/17/19 07:10 Urine Color Yellow 12/16/19 17:30 Urine Appearance Turbid 12/16/19 17:30 Urine pH 5.0 (5.0-8.0) 12/16/19 17:30 Ur Specific [place] 1.033 (1.010-1.035) 12/16/19 17:30 Urine Protein Trace (NEGATIVE) 12/16/19 17:30 Urine Glucose (UA) Negative (NEGATIVE) 12/16/19 17:30 Urine Ketones Negative (NEGATIVE) 12/16/19 17:30 Urine Blood Negative (NEGATIVE) 12/16/19 17:30 Urine Nitrite Negative (NEGATIVE) 12/16/19 17:30 Urine Bilirubin Negative (NEGATIVE) 12/16/19 17:30 Urine Urobilinogen 1.0 mg/dL (0.2-1.0) 12/16/19 17:30 Ur Leukocyte Esterase Negative (NEGATIVE) 12/16/19 17:30 Syphilis Serology Reactive (NONREACTIVE) A* 12/17/19 07:10 RPR Titer Reactive 1:1 (NONREACTIVE) H 12/17/19 07:10 Labs reviewed with reactive RPR. Assessment: 12/17/19 12:03 Alert and oriented x 3, in no acute respiratory distress. Full ROM, ambulating in the unit with no assistance. Moderate withdrawal symptoms. No lesions noted. 12/17/19 14:22 Plan: Continue detox protocol. COVID 19. testing pending. Zithromax 2 grams x 1 dose for reactive RPR.
[2019-12-17] MEDS: THIAMINE HCL 100 MG TABLET (FP) PO SCH (22:13)
[2019-12-17] MEDS: MELATONIN 5 MG TABLETS PO SCH (22:15)
[2019-12-18] MEDS: hydrOXYzine PAMOATE 25 MG CAPSULE (FP) PO SCH ×3 (05:57→14:09)
[2019-12-18] MEDS: chlordiazePOXIDE HCL 25 MG CAPSULE PO SCH ×4 (05:57→22:27)
[2019-12-18] MEDS: NICOTINE 21 MG/24 HOURS TOPICAL PATCH TD SCH (10:20)
[2019-12-18] MEDS: PRENATAL VITAMINS W/ FOLIC ACID TABLET (FP) PO SCH (10:21)
--- NOTE | 2019-12-18 11:59 | PN ---
[facility] CIWA - CIWA Score Nausea/Vomitin-No Nausea/No Vomiting Muscle Tremors: 3 Anxiety: 3 Agitation: 3 Paroxysmal Sweats: 3 Orientation: 0-Oriented Tacttile Disturbances: 0-None Auditory Disturbances: 0-None Visual Disturbances: 0-None Headache: 0-None Present CIWA-Ar Total Score: 12 S Progress Note (SOAP) Subjective: sweats shakes irritable Objective: 12/18/19 11:55 Vital Signs Temperature 97.3 F L 12/18/19 09:00 Pulse Rate 76 12/18/19 09:00 Respiratory Rate 18 12/18/19 09:00 Blood Pressure 123/69 12/18/19 09:00 O2 Sat by Pulse Oximetry (%) 100 12/18/19 05:30 Laboratory Tests 12/16/19 12/17/19 12/17/19 17:30 07:10 07:10 WBC 5.5 RBC 4.66 Hgb 12.8 Hct 39.6 MCV 84.9 MCH 27.5 MCHC 32.4 RDW 15.2 D Plt Count 188 MPV 9.5 Sodium Potassium Chloride Carbon Dioxide Anion Gap BUN Creatinine Est GFR (CKD-EPI)AfAm Est GFR (CKD-EPI)NonAf Random Glucose Calcium Total Bilirubin AST ALT Alkaline Phosphatase Total Protein Albumin Urine Color Yellow Urine Appearance Turbid Urine pH 5.0 Ur Specific [place] 1.033 Urine Protein Trace Urine Glucose (UA) Negative Urine Ketones Negative Urine Blood Negative Urine Nitrite Negative Urine Bilirubin Negative Urine Urobilinogen 1.0 Ur Leukocyte Esterase Negative Syphilis Serology Reactive A* RPR Titer 12/17/19 12/17/19 07:10 07:10 WBC RBC Hgb Hct MCV MCH MCHC RDW Plt Count MPV Sodium 141 Potassium 3.7 Chloride 107 Carbon Dioxide 29 Anion Gap 5 L BUN 10.7 Creatinine 1.0 Est GFR (CKD-EPI)AfAm 98.46 Est GFR (CKD-EPI)NonAf 84.95 Random Glucose 143 H Calcium 8.3 L Total Bilirubin 0.8 AST 17 ALT 32 Alkaline Phosphatase 73 Total Protein 7.1 Albumin 3.4 Urine Color Urine Appearance Urine pH Ur Specific [place] Urine Protein Urine Glucose (UA) Urine Ketones Urine Blood Urine Nitrite Urine Bilirubin Urine Urobilinogen Ur Leukocyte Esterase Syphilis Serology RPR Titer Reactive 1:1 H labs noted rpr reactive 1:1 noted; aaox3 ambulating no acute disstress Assessment: 12/18/19 11:56 withdrawals Plan: continue detox increase fluids will ask pt if he received treatment and if he is interested in booster injection.
[2019-12-18] MEDS ORDERED: hydrOXYzine PAMOATE 25 MG CAPSULE (FP) PO PRN (14:37)
[2019-12-18] MEDS ORDERED: PENICILLIN G BENZATHINE 2,400,000 UNIT/4 ML PFS IM ONE (14:57)
--- NOTE | 2019-12-18 15:01 | PN ---
[facility] Progress Note Note: Laboratory Tests 12/16/19 12/17/19 12/17/19 17:30 07:10 07:10 WBC 5.5 RBC 4.66 Hgb 12.8 Hct 39.6 MCV 84.9 MCH 27.5 MCHC 32.4 RDW 15.2 D Plt Count 188 MPV 9.5 Sodium Potassium Chloride Carbon Dioxide Anion Gap BUN Creatinine Est GFR (CKD-EPI)AfAm Est GFR (CKD-EPI)NonAf Random Glucose Calcium Total Bilirubin AST ALT Alkaline Phosphatase Total Protein Albumin Urine Color Yellow Urine Appearance Turbid Urine pH 5.0 Ur Specific [place] 1.033 Urine Protein Trace Urine Glucose (UA) Negative Urine Ketones Negative Urine Blood Negative Urine Nitrite Negative Urine Bilirubin Negative Urine Urobilinogen 1.0 Ur Leukocyte Esterase Negative Syphilis Serology Reactive A* RPR Titer 12/17/19 12/17/19 07:10 07:10 WBC RBC Hgb Hct MCV MCH MCHC RDW Plt Count MPV Sodium 141 Potassium 3.7 Chloride 107 Carbon Dioxide 29 Anion Gap 5 L BUN 10.7 Creatinine 1.0 Est GFR (CKD-EPI)AfAm 98.46 Est GFR (CKD-EPI)NonAf 84.95 Random Glucose 143 H Calcium 8.3 L Total Bilirubin 0.8 AST 17 ALT 32 Alkaline Phosphatase 73 Total Protein 7.1 Albumin 3.4 Urine Color Urine Appearance Urine pH Ur Specific [place] Urine Protein Urine Glucose (UA) Urine Ketones Urine Blood Urine Nitrite Urine Bilirubin Urine Urobilinogen Ur Leukocyte Esterase Syphilis Serology RPR Titer Reactive 1:1 H pt was made aware of rpr reactive with 1:1 titer. pt states he received treatment a while ago and will be interested in receiving a booster to assist with and re-occurrence of any outbreak. Bicilin 2.4million x one injection ordered
[2019-12-18] MEDS: DOXYCYCLINE HYCLATE 100 MG TABLET PO SCH (17:39)
[2019-12-18] MEDS: MELATONIN 5 MG TABLETS PO SCH (22:27)
[2019-12-18] MEDS: THIAMINE HCL 100 MG TABLET (FP) PO SCH (22:27)
[2019-12-19] MEDS ORDERED: chlordiazePOXIDE HCL 10 MG CAPSULE PO PRN
[2019-12-19] MEDS: chlordiazePOXIDE HCL 10 MG CAPSULE PO SCH ×4 (06:31→22:10)
[2019-12-19] MEDS: NICOTINE 21 MG/24 HOURS TOPICAL PATCH TD SCH (10:04)
[2019-12-19] MEDS: DOXYCYCLINE HYCLATE 100 MG TABLET PO SCH ×2 (10:05→17:25)
[2019-12-19] MEDS: PRENATAL VITAMINS W/ FOLIC ACID TABLET (FP) PO SCH (10:05)
--- NOTE | 2019-12-19 10:17 | PN ---
S CIWA - CIWA Score Nausea/Vomitin-No Nausea/No Vomiting Muscle Tremors: 2 Anxiety: 0-No Anxiety, at Ease Agitation: 1-Slight > Activity Paroxysmal Sweats: 1-Minimal Palms Moist Orientation: 0-Oriented Tacttile Disturbances: 0-None Auditory Disturbances: 0-None Visual Disturbances: 0-None Headache: 0-None Present CIWA-Ar Total Score: 4 BHS Progress Note (SOAP) Subjective: sweats body aches interrupted sleep Objective: 12/19/19 10:16 Vital Signs Temperature 97.3 F L 12/19/19 08:30 Pulse Rate 76 12/19/19 08:30 Respiratory Rate 17 12/19/19 08:30 Blood Pressure 116/69 12/19/19 08:30 O2 Sat by Pulse Oximetry (%) 96 12/19/19 06:15 Laboratory Tests 12/16/19 12/17/19 12/17/19 17:30 07:10 07:10 WBC 5.5 RBC 4.66 Hgb 12.8 Hct 39.6 MCV 84.9 MCH 27.5 MCHC 32.4 RDW 15.2 D Plt Count 188 MPV 9.5 Sodium Potassium Chloride Carbon Dioxide Anion Gap BUN Creatinine Est GFR (CKD-EPI)AfAm Est GFR (CKD-EPI)NonAf Random Glucose Calcium Total Bilirubin AST ALT Alkaline Phosphatase Total Protein Albumin Urine Color Yellow Urine Appearance Turbid Urine pH 5.0 Ur Specific [place] 1.033 Urine Protein Trace Urine Glucose (UA) Negative Urine Ketones Negative Urine Blood Negative Urine Nitrite Negative Urine Bilirubin Negative Urine Urobilinogen 1.0 Ur Leukocyte Esterase Negative Syphilis Serology Reactive A* RPR Titer 12/17/19 12/17/19 07:10 07:10 WBC RBC Hgb Hct MCV MCH MCHC RDW Plt Count MPV Sodium 141 Potassium 3.7 Chloride 107 Carbon Dioxide 29 Anion Gap 5 L BUN 10.7 Creatinine 1.0 Est GFR (CKD-EPI)AfAm 98.46 Est GFR (CKD-EPI)NonAf 84.95 Random Glucose 143 H Calcium 8.3 L Total Bilirubin 0.8 AST 17 ALT 32 Alkaline Phosphatase 73 Total Protein 7.1 Albumin 3.4 Urine Color Urine Appearance Urine pH Ur Specific [place] Urine Protein Urine Glucose (UA) Urine Ketones Urine Blood Urine Nitrite Urine Bilirubin Urine Urobilinogen Ur Leukocyte Esterase Syphilis Serology RPR Titer Reactive 1:1 H aaox3 ambulating no acute distress Assessment: 12/19/19 10:16 withdrawals Plan: continue detox medication reconciliation done. spoke with pharmacist мария Guajardo and it was confirmed form [facility] pt last p/u his genvoya on 12/15/2019. genvoya ordered.
[2019-12-19] MEDS: ELVITEG/COB/EMTRI/TENOF (GENVOYA) TABLET (NF) PO SCH (13:42)
[2019-12-19] MEDS: THIAMINE HCL 100 MG TABLET (FP) PO SCH (22:10)
[2019-12-19] MEDS: MELATONIN 5 MG TABLETS PO SCH (22:11)
[2019-12-20] MEDS: chlordiazePOXIDE HCL 10 MG CAPSULE PO SCH ×2 (05:22→17:56)
[2019-12-20] MEDS: ELVITEG/COB/EMTRI/TENOF (GENVOYA) TABLET (NF) PO SCH (07:11)
--- NOTE | 2019-12-20 10:25 | PN ---
S CIWA - CIWA Score Nausea/Vomitin-No Nausea/No Vomiting Muscle Tremors: 1-None Visible, but [place] Anxiety: 0-No Anxiety, at Ease Agitation: 1-Slight > Activity Paroxysmal Sweats: No Perspiration Orientation: 0-Oriented Tacttile Disturbances: 0-None Auditory Disturbances: 0-None Visual Disturbances: 0-None Headache: 0-None Present CIWA-Ar Total Score: 2 BHS Progress Note (SOAP) Subjective: feeling better Objective: 12/20/19 10:25 Vital Signs Temperature 97.5 F L 12/20/19 08:45 Pulse Rate 71 12/20/19 08:45 Respiratory Rate 16 12/20/19 08:45 Blood Pressure 119/71 12/20/19 08:45 O2 Sat by Pulse Oximetry (%) 99 12/20/19 05:16 aaox3 ambulating no acute distress Assessment: 12/20/19 10:25 mild withdrawals Plan: continue detox d/c in am
[2019-12-20] MEDS: DOXYCYCLINE HYCLATE 100 MG TABLET PO SCH ×2 (10:41→17:55)
[2019-12-20] MEDS: NICOTINE 21 MG/24 HOURS TOPICAL PATCH TD SCH (10:41)
[2019-12-20] MEDS: PRENATAL VITAMINS W/ FOLIC ACID TABLET (FP) PO SCH (10:41)
[2019-12-20] MEDS: THIAMINE HCL 100 MG TABLET (FP) PO SCH (22:36)
[2019-12-20] MEDS: MELATONIN 5 MG TABLETS PO SCH (23:20)
[2019-12-21] MEDS ORDERED: chlordiazePOXIDE HCL 10 MG CAPSULE PO ONE (05:00)
[2019-12-21] MEDS: ELVITEG/COB/EMTRI/TENOF (GENVOYA) TABLET (NF) PO SCH (07:39)
--- NOTE | 2019-12-21 08:49 | DS ---
[facility] Detox Discharge Summary Admission Date: 12/16/19 Discharge Date: 12/21/19 - History Present History: Alcohol Dependence - Physical Exam Results Vital Signs: Vital Signs Temperature 97.3 F L 12/21/19 06:18 Pulse Rate 81 12/21/19 06:18 Respiratory Rate 20 12/21/19 06:18 Blood Pressure 123/71 12/21/19 06:18 O2 Sat by Pulse Oximetry (%) 100 12/21/19 06:18 Pertinent Admission Physical Exam Findings: Vital Signs Temperature 97.3 F L 12/21/19 06:18 Pulse Rate 81 12/21/19 06:18 Respiratory Rate 20 12/21/19 06:18 Blood Pressure 123/71 12/21/19 06:18 O2 Sat by Pulse Oximetry (%) 100 12/21/19 06:18 Laboratory Tests 12/16/19 12/16/19 12/17/19 13:28 17:30 07:10 WBC RBC Hgb Hct MCV MCH MCHC RDW Plt Count MPV Sodium Potassium Chloride Carbon Dioxide Anion Gap BUN Creatinine Est GFR (CKD-EPI)AfAm Est GFR (CKD-EPI)NonAf Random Glucose Calcium Total Bilirubin AST ALT Alkaline Phosphatase Total Protein Albumin Urine Color Yellow Urine Appearance Turbid Urine pH 5.0 Ur Specific [place] 1.033 Urine Protein Trace Urine Glucose (UA) Negative Urine Ketones Negative Urine Blood Negative Urine Nitrite Negative Urine Bilirubin Negative Urine Urobilinogen 1.0 Ur Leukocyte Esterase Negative Syphilis Serology Reactive A* RPR Titer COVID-19 (JUAN) Not detected 12/17/19 12/17/19 12/17/19 07:10 07:10 07:10 WBC 5.5 RBC 4.66 Hgb 12.8 Hct 39.6 MCV 84.9 MCH 27.5 MCHC 32.4 RDW 15.2 D Plt Count 188 MPV 9.5 Sodium 141 Potassium 3.7 Chloride 107 Carbon Dioxide 29 Anion Gap 5 L BUN 10.7 Creatinine 1.0 Est GFR (CKD-EPI)AfAm 98.46 Est GFR (CKD-EPI)NonAf 84.95 Random Glucose 143 H Calcium 8.3 L Total Bilirubin 0.8 AST 17 ALT 32 Alkaline Phosphatase 73 Total Protein 7.1 Albumin 3.4 Urine Color Urine Appearance Urine pH Ur Specific [place] Urine Protein Urine Glucose (UA) Urine Ketones Urine Blood Urine Nitrite Urine Bilirubin Urine Urobilinogen Ur Leukocyte Esterase Syphilis Serology RPR Titer Reactive 1:1 H COVID-19 (JUAN) aaox3 ambulating no acute distress lungs CTA ABX started for syphilis treatment - Treatment Hospital Course: Detox Protocol Followed, Detoxed Safely, Responded well, Discharged Condition Good, Rehab Referral Accepted - Medication Discharge Medications: Ambulatory Orders Elviteg/Cob/Emtri/Tenof Alafen [Genvoya (Non-Formulary)] 1 each PO DAILY 08/27/18 - Diagnosis (1) History of syphilis Current Visit: Yes Status: Chronic (2) Adjustment disorder with depressed mood Current Visit: No Status: Acute (3) Depression Current Visit: No Status: Acute (4) History of syphilis Current Visit: No Status: Acute (5) Puncture wound of right foot Current Visit: No Status: Acute (6) Weight loss Current Visit: No Status: Acute (7) Alcohol dependence with uncomplicated withdrawal Current Visit: Yes Status: Chronic (8) Cocaine dependence Current Visit: Yes Status: Chronic Qualifiers: Substance use status: uncomplicated Qualified Code(s): F14.20 - Cocaine dependence, uncomplicated (9) HIV (human immunodeficiency virus infection) Current Visit: Yes Status: Chronic Qualifiers: HIV symptom status: unspecified Qualified Code(s): B20 - Human immunodeficiency virus [HIV] disease (10) Nicotine dependence Current Visit: Yes Status: Chronic Qualifiers: Nicotine product type: cigarettes Substance use status: uncomplicated Qualified Code(s): F17.210 - Nicotine dependence, cigarettes, uncomplicated (11) PPD positive Current Visit: No Status: Resolved (12) History of syphilis Current Visit: Yes Status: Acute - AMA Did Patient Leave Against Medical Advice: No
[2019-12-21 09:46] VITALS: BP 122/69; PULSE 76; TEMP 98.1
[2019-12-21] MEDS: PRENATAL VITAMINS W/ FOLIC ACID TABLET (FP) PO SCH (10:15)
[2019-12-21] MEDS: DOXYCYCLINE HYCLATE 100 MG TABLET PO SCH (10:15)
[2019-12-21] MEDS: NICOTINE 21 MG/24 HOURS TOPICAL PATCH TD SCH (10:15)
== END 2019-12-21 12:51 | disposition other institution (70) | DRG 774 ==
LOC: YASAS 08:56 → Y6N 13:05
PROVIDERS: ADMIT Allergy & Immunology; ATTEND Allergy & Immunology
PROC: HZ2ZZZZ Detoxification Services for Substance Abuse Treatment (ICD-10-PCS; principal; 2019-12-16)
DX: F10.230 Alcohol dependence with withdrawal, uncomplicated (principal); F14.20 Cocaine dependence, uncomplicated; F17.210 Nicotine dependence, cigarettes, uncomplicated; F43.21 Adjustment disorder with depressed mood; F32.9 Major depressive disorder, single episode, unspecified; Z21 Asymptomatic human immunodeficiency virus [HIV] infection status; R76.11 Nonspecific reaction to tuberculin skin test without active tuberculosis; R63.4 Abnormal weight loss; Z68.33 Body mass index [BMI] 33.0-33.9, adult; Z86.69 Personal history of other diseases of the nervous system and sense organs; Z86.19 Personal history of other infectious and parasitic diseases; Z88.0 Allergy status to penicillin
CPT/HCPCS: 36415; 71046-TC-FY; 80053; 81003; 85027; 86593; 86780; U0003

== ENCOUNTER 2019-12-21 13:19 | Inpatient (IN) | payer OTHER ==
[2019-12-21] MEDS ORDERED: NICOTINE POLACRILEX 2 MG GUM BUC PRN (14:20)
[2019-12-21] MEDS ORDERED: MENTHOL/PHENOL 1 EACH UD MM PRN (14:20)
[2019-12-21] MEDS ORDERED: ACETAMINOPHEN 325 MG TABLET (FP) PO PRN (14:20)
[2019-12-21] MEDS ORDERED: P-EPHED 60MG/TRIPROLIDI 2.5MG TABLET PO PRN (14:20)
[2019-12-21] MEDS ORDERED: hydrOXYzine PAMOATE 25 MG CAPSULE (FP) PO PRN (14:20)
[2019-12-21] MEDS ORDERED: LOPERAMIDE HCL 2 MG CAPSULE PO PRN (14:20)
[2019-12-21] MEDS ORDERED: MAGNESIUM HYDROX 2400MG/30ML ORAL SUSPENSION 30 ML CUP PO PRN (14:20)
[2019-12-21] MEDS ORDERED: MAGNESIUM CITRATE 300 ML BOTTLE PO PRN (14:20)
[2019-12-21] MEDS ORDERED: guaiFENesin 200 MG/10 ML 10 ML UNIT-DOSE CUPS PO PRN (14:20)
[2019-12-21] MEDS ORDERED: MAG HYDROX/AL HYDROX/SIMETH 30 ML UNIT-DOSE CUP PO PRN (14:20)
[2019-12-21] MEDS ORDERED: IBUPROFEN 400 MG TABLET (FP) PO PRN (14:20)
--- NOTE | 2019-12-21 14:21 | HP ---
PRAKASH AREVALO Rehab Assess/Revision - Admission History Admitted to Rehab from[facility] - Findings Detox History & Physical reviewed: Yes Concur with findings: Yes Inpatient Rehab Admission - Rehab Decision to Admit Inpatient rehab admission?: Yes - Initial Determination Are CD services needed?: Yes Free of communicable disease: Yes Not in need of hospitalization: Yes - Rehab Admission Criteria Previous failed treatment: Yes Poor recovery environment: Yes Comorbidities: Yes Lacks judgement: Yes Patient is meeting Inpatient Rehab admission criteria:: Yes
[2019-12-21] MEDS ORDERED: PT OWN MED DRAWER 7, Y5N ONE ×2 (15:55→16:49)
[2019-12-21] MEDS: DOXYCYCLINE HYCLATE 100 MG TABLET PO SCH (18:14)
[2019-12-21] MEDS: THIAMINE HCL 100 MG TABLET (FP) PO SCH (21:23)
[2019-12-21] MEDS: MELATONIN 5 MG TABLETS PO SCH (21:23)
[2019-12-22] MEDS: ELVITEG/COB/EMTRI/TENOF (GENVOYA) TABLET (NF) PO SCH (08:55)
[2019-12-22] MEDS: NICOTINE 21 MG/24 HOURS TOPICAL PATCH TD SCH (10:00)
[2019-12-22] MEDS: PRENATAL VITAMINS W/ FOLIC ACID TABLET (FP) PO SCH (10:00)
[2019-12-22] MEDS: DOXYCYCLINE HYCLATE 100 MG TABLET PO SCH ×2 (10:00→18:05)
[2019-12-22] MEDS ORDERED: PT OWN MED DRAWER 7, Y5N ONE ×3 (10:22→17:20)
--- NOTE | 2019-12-22 17:04 | CONSULT ---
[facility] Psychiatric Consult - Data Date of interview: 12/22/19 Admission source: [facility] Identifying data: Patient is a 54 year old single [facility] male, unemployed, homeless, and is supported by public assistance. This is one of multiple admissions for patient. Patient admitted to rehab for alcohol and cocaine dependence. Substance Abuse History: Smoking Cessation. Smoking history: Current every day smoker. Have you smoked in the past 12 months: Yes. Aproximately how many cigarettes per day: 10. Hx Chewing Tobacco Use: No. Initiated information on smoking cessation: Yes. 'Breaking Loose' booklet given: 12/16/19. - Substance & Tx. History. Hx Alcohol Use: Yes. Hx Substance Use: Yes. Substance Use Type: Alcohol, Cocaine. Hx Substance Use Treatment: Yes ([facility] to 11/13/18). - Substances abused. Alcohol. Substance route: Oral. Frequency: Daily. Amount used: 4 pints of vodka/ packs of 24 ozs of beer. Age of first use: 14. Date of last use: 12/15/19. Crack. Frequency: 1-2 times per week. Amount used: 50 $. Age of first use: 32. Date of last use: 12/15/19 Medical History: Seizure, Syncope, HIV Psychiatric History: Mr. Montgomery reports history of several psychiatric hospitalizations ([facility], [facility]) most recently at [facility] September of 2019 due to depression and hearing voices of his sister crying. Stated to video games storywriter that his sister was murdered last year and occasionally hears her crying. He reports being diagnosed with depression/ bipolar disorder while at [facility] and was prescribed zoloft + risperdal although is unsure of dosages prescribed. Patient is totally lost in follow up care. No reported history of suicide attempt. At present patient denies auditory/ visual hallucinations, suicidal/ homicidal ideation. Physical/Sexual Abuse/Trauma History: denies. Mental Status Exam - Mental Status Exam Alert and Oriented to: Time, Place, Person Cognitive Function: Good Patient Appearance: Well Groomed Mood: Hopeful Affect: Appropriate Patient Behavior: Cooperative Speech Pattern: Appropriate Voice Loudness: Mildly Soft/Quiet Thought Process: Goal Oriented Thought Disorder: Not Present Hallucinations: Denies Suicidal Ideation: Denies Homicidal Ideation: Denies Insight/Judgement: Poor Sleep: Fair Appetite: Fair Muscle strength/Tone: Normal Gait/Station: Normal Psychiatric Findings - Problem List ([place] 1, 2,3) (1) Alcohol dependence with uncomplicated withdrawal Current Visit: Yes Status: Chronic (2) Cocaine dependence Current Visit: Yes Status: Chronic Qualifiers: Substance use status: uncomplicated Qualified Code(s): F14.20 - Cocaine dependence, uncomplicated (3) Adjustment disorder with depressed mood Current Visit: Yes Status: Acute Comment: Possibly history of MDD with psychotic features. - Initial Treatment Plan Initial Treatment Plan: Psychoeducation provided. Rehab in progress. Core Machine Operator called [facility] at [phone] but lamination operator states number dialed is not in service. Pharmacy on file contacted: [facility] pharmacy # [phone] and pharmacy staff reported that patient last picked up a p rescription of seroquel 50mg #21 tablets in June of 2019. Patient in agreement in resuming zoloft 50mg + Risperdal 1mg HS. Benefits and side effects discussed. Verbal consent given.
[2019-12-22] MEDS: THIAMINE HCL 100 MG TABLET (FP) PO SCH (21:13)
[2019-12-22] MEDS: risperiDONE 1 MG TABLET PO SCH (21:13)
[2019-12-22] MEDS: MELATONIN 5 MG TABLETS PO SCH (21:13)
[2019-12-23] MEDS: ELVITEG/COB/EMTRI/TENOF (GENVOYA) TABLET (NF) PO SCH (07:11)
[2019-12-23] MEDS: PRENATAL VITAMINS W/ FOLIC ACID TABLET (FP) PO SCH (09:58)
[2019-12-23] MEDS: SERTRALINE HCL 50 MG TABLET (FP) PO SCH (09:58)
[2019-12-23] MEDS: DOXYCYCLINE HYCLATE 100 MG TABLET PO SCH ×2 (09:58→17:53)
[2019-12-23] MEDS: NICOTINE 21 MG/24 HOURS TOPICAL PATCH TD SCH (09:58)
[2019-12-23] MEDS ORDERED: PT OWN MED DRAWER 7, Y5N ONE (17:29)
[2019-12-23] MEDS: risperiDONE 1 MG TABLET PO SCH (21:25)
[2019-12-23] MEDS: MELATONIN 5 MG TABLETS PO SCH (21:25)
[2019-12-23] MEDS: THIAMINE HCL 100 MG TABLET (FP) PO SCH (21:25)
[2019-12-24] MEDS: ELVITEG/COB/EMTRI/TENOF (GENVOYA) TABLET (NF) PO SCH (07:35)
[2019-12-24] MEDS ORDERED: PT OWN MED DRAWER 7, Y5N ONE ×2 (08:58→16:47)
[2019-12-24] MEDS: SERTRALINE HCL 50 MG TABLET (FP) PO SCH (10:03)
[2019-12-24] MEDS: PRENATAL VITAMINS W/ FOLIC ACID TABLET (FP) PO SCH (10:03)
[2019-12-24] MEDS: DOXYCYCLINE HYCLATE 100 MG TABLET PO SCH ×2 (10:03→17:16)
[2019-12-24] MEDS: NICOTINE 21 MG/24 HOURS TOPICAL PATCH TD SCH (10:04)
[2019-12-24] MEDS: THIAMINE HCL 100 MG TABLET (FP) PO SCH (21:17)
[2019-12-24] MEDS: MELATONIN 5 MG TABLETS PO SCH (21:18)
[2019-12-24] MEDS: risperiDONE 1 MG TABLET PO SCH (21:18)
[2019-12-25] MEDS: ELVITEG/COB/EMTRI/TENOF (GENVOYA) TABLET (NF) PO SCH (07:12)
[2019-12-25] MEDS ORDERED: PT OWN MED DRAWER 7, Y5N ONE ×2 (07:17→09:02)
[2019-12-25] MEDS: PRENATAL VITAMINS W/ FOLIC ACID TABLET (FP) PO SCH (09:27)
[2019-12-25] MEDS: DOXYCYCLINE HYCLATE 100 MG TABLET PO SCH ×2 (09:27→17:17)
[2019-12-25] MEDS: NICOTINE 21 MG/24 HOURS TOPICAL PATCH TD SCH (09:27)
[2019-12-25] MEDS: SERTRALINE HCL 50 MG TABLET (FP) PO SCH (09:27)
[2019-12-25] MEDS: MELATONIN 5 MG TABLETS PO SCH (21:09)
[2019-12-25] MEDS: THIAMINE HCL 100 MG TABLET (FP) PO SCH (21:09)
[2019-12-25] MEDS: risperiDONE 1 MG TABLET PO SCH (21:09)
[2019-12-26] MEDS ORDERED: PT OWN MED DRAWER 7, Y5N ONE (06:22)
[2019-12-26] MEDS: ELVITEG/COB/EMTRI/TENOF (GENVOYA) TABLET (NF) PO SCH (07:33)
[2019-12-26] MEDS: DOXYCYCLINE HYCLATE 100 MG TABLET PO SCH ×2 (09:51→18:40)
[2019-12-26] MEDS: PRENATAL VITAMINS W/ FOLIC ACID TABLET (FP) PO SCH (09:51)
[2019-12-26] MEDS: NICOTINE 21 MG/24 HOURS TOPICAL PATCH TD SCH (09:51)
[2019-12-26] MEDS: SERTRALINE HCL 50 MG TABLET (FP) PO SCH (09:52)
[2019-12-26] MEDS: risperiDONE 1 MG TABLET PO SCH (21:04)
[2019-12-26] MEDS: THIAMINE HCL 100 MG TABLET (FP) PO SCH (21:04)
[2019-12-26] MEDS: MELATONIN 5 MG TABLETS PO SCH (21:04)
[2019-12-27] MEDS: ELVITEG/COB/EMTRI/TENOF (GENVOYA) TABLET (NF) PO SCH (07:33)
[2019-12-27] MEDS ORDERED: PT OWN MED DRAWER 7, Y5N ONE ×2 (09:01→16:39)
[2019-12-27] MEDS: DOXYCYCLINE HYCLATE 100 MG TABLET PO SCH ×2 (10:11→18:30)
[2019-12-27] MEDS: NICOTINE 21 MG/24 HOURS TOPICAL PATCH TD SCH (10:11)
[2019-12-27] MEDS: PRENATAL VITAMINS W/ FOLIC ACID TABLET (FP) PO SCH (10:11)
[2019-12-27] MEDS: SERTRALINE HCL 50 MG TABLET (FP) PO SCH (10:12)
[2019-12-27] MEDS: MELATONIN 5 MG TABLETS PO SCH (21:00)
[2019-12-27] MEDS: THIAMINE HCL 100 MG TABLET (FP) PO SCH (21:00)
[2019-12-27] MEDS: risperiDONE 1 MG TABLET PO SCH (21:01)
[2019-12-28] MEDS: ELVITEG/COB/EMTRI/TENOF (GENVOYA) TABLET (NF) PO SCH (08:17)
[2019-12-28] MEDS: PRENATAL VITAMINS W/ FOLIC ACID TABLET (FP) PO SCH (09:33)
[2019-12-28] MEDS: SERTRALINE HCL 50 MG TABLET (FP) PO SCH (09:33)
[2019-12-28] MEDS: DOXYCYCLINE HYCLATE 100 MG TABLET PO SCH (09:33)
[2019-12-28] MEDS: NICOTINE 21 MG/24 HOURS TOPICAL PATCH TD SCH (09:33)
[2019-12-28] MEDS: risperiDONE 1 MG TABLET PO SCH (21:06)
[2019-12-28] MEDS: THIAMINE HCL 100 MG TABLET (FP) PO SCH (21:06)
[2019-12-28] MEDS: MELATONIN 5 MG TABLETS PO SCH (21:06)
[2019-12-29] MEDS: ELVITEG/COB/EMTRI/TENOF (GENVOYA) TABLET (NF) PO SCH (07:07)
[2019-12-29] MEDS: NICOTINE 21 MG/24 HOURS TOPICAL PATCH TD SCH (09:32)
[2019-12-29] MEDS: PRENATAL VITAMINS W/ FOLIC ACID TABLET (FP) PO SCH (09:32)
[2019-12-29] MEDS: SERTRALINE HCL 50 MG TABLET (FP) PO SCH (09:33)
[2019-12-29] MEDS: MELATONIN 5 MG TABLETS PO SCH (21:20)
[2019-12-29] MEDS: THIAMINE HCL 100 MG TABLET (FP) PO SCH (21:20)
[2019-12-29] MEDS: risperiDONE 1 MG TABLET PO SCH (21:20)
[2019-12-30] MEDS ORDERED: PT OWN MED DRAWER 7, Y5N ONE (06:20)
[2019-12-30] MEDS: ELVITEG/COB/EMTRI/TENOF (GENVOYA) TABLET (NF) PO SCH (07:10)
[2019-12-30] MEDS: NICOTINE 21 MG/24 HOURS TOPICAL PATCH TD SCH (10:16)
[2019-12-30] MEDS: SERTRALINE HCL 50 MG TABLET (FP) PO SCH (10:16)
[2019-12-30] MEDS: PRENATAL VITAMINS W/ FOLIC ACID TABLET (FP) PO SCH (10:16)
[2019-12-30] MEDS: THIAMINE HCL 100 MG TABLET (FP) PO SCH (21:01)
[2019-12-30] MEDS: MELATONIN 5 MG TABLETS PO SCH (21:02)
[2019-12-30] MEDS: risperiDONE 1 MG TABLET PO SCH (21:02)
[2019-12-31] MEDS: ELVITEG/COB/EMTRI/TENOF (GENVOYA) TABLET (NF) PO SCH (07:02)
[2019-12-31] MEDS: PRENATAL VITAMINS W/ FOLIC ACID TABLET (FP) PO SCH (10:10)
[2019-12-31] MEDS: NICOTINE 21 MG/24 HOURS TOPICAL PATCH TD SCH (10:10)
[2019-12-31] MEDS: SERTRALINE HCL 50 MG TABLET (FP) PO SCH (10:10)
[2019-12-31] MEDS: MELATONIN 5 MG TABLETS PO SCH (21:07)
[2019-12-31] MEDS: THIAMINE HCL 100 MG TABLET (FP) PO SCH (21:07)
[2019-12-31] MEDS: risperiDONE 1 MG TABLET PO SCH (21:07)
[2020-01-01] MEDS: ELVITEG/COB/EMTRI/TENOF (GENVOYA) TABLET (NF) PO SCH (07:16)
[2020-01-01] MEDS: SERTRALINE HCL 50 MG TABLET (FP) PO SCH (10:07)
[2020-01-01] MEDS: NICOTINE 21 MG/24 HOURS TOPICAL PATCH TD SCH (10:07)
[2020-01-01] MEDS: PRENATAL VITAMINS W/ FOLIC ACID TABLET (FP) PO SCH (10:07)
[2020-01-01] MEDS: THIAMINE HCL 100 MG TABLET (FP) PO SCH (21:10)
[2020-01-01] MEDS: risperiDONE 1 MG TABLET PO SCH (21:11)
[2020-01-01] MEDS: MELATONIN 5 MG TABLETS PO SCH (21:11)
[2020-01-02] MEDS: ELVITEG/COB/EMTRI/TENOF (GENVOYA) TABLET (NF) PO SCH (07:26)
[2020-01-02] MEDS: NICOTINE 21 MG/24 HOURS TOPICAL PATCH TD SCH (09:58)
[2020-01-02] MEDS: SERTRALINE HCL 50 MG TABLET (FP) PO SCH (09:58)
[2020-01-02] MEDS: PRENATAL VITAMINS W/ FOLIC ACID TABLET (FP) PO SCH (09:58)
[2020-01-02] MEDS: MELATONIN 5 MG TABLETS PO SCH (21:46)
[2020-01-02] MEDS: THIAMINE HCL 100 MG TABLET (FP) PO SCH (21:47)
[2020-01-02] MEDS: risperiDONE 1 MG TABLET PO SCH (21:47)
[2020-01-03] MEDS: ELVITEG/COB/EMTRI/TENOF (GENVOYA) TABLET (NF) PO SCH (07:18)
[2020-01-03] MEDS ORDERED: PT OWN MED DRAWER 7, Y5N ONE (07:19)
--- NOTE | 2020-01-03 08:17 | DS ---
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 rehab 09/09/18 to 09/13/09 seizure last 2019 syncope hiv since 2016 on medication weight loss nicotine dependence longest sobriety 14 months - Discharge Physical Exam Vital Signs: Vital Signs Temperature 98.0 F 01/03/20 06:20 Pulse Rate 71 01/03/20 06:20 Respiratory Rate 18 01/03/20 06:20 Blood Pressure 114/70 01/03/20 06:20 O2 Sat by Pulse Oximetry (%) 99 01/02/20 19:40 Pertinent Admission Physical Exam Findings: Physical General Appearance: No apparent distress HEENTM: normocephalic, PERRLA Respiratory: +Breath Sounds, No Respiratory Distress Neck: Supple, Trachea in good position Cardiology: S1, S2 Abdominal: +Bowel Sounds, Non Tender, Flat, Soft Musculoskeletal: Full weight bearing, full ROM, steady gait - Treatment Discharge Condition: Outpatient referral accepted (Patient will go to [facility] upon discharge. Medically stable for discharge.) Hospital Course: patient attended groups, had 1;1 with his counselor and was seen by the psychiatric service. He was adherent to his medication regimen and treatment plan. He had no acute or urgent medical problems. - Medication Discharge Medications: Ambulatory Orders Elviteg/Cob/Emtri/Tenof Alafen [Genvoya (Non-Formulary)] 1 each PO DAILY #30 tablet 01/03/20 Risperidone [Risperdal -] 1 mg PO HS #30 tablet 01/03/20 Sertraline HCl [Zoloft -] 50 mg PO DAILY #30 tablet 01/03/20 - Medication-Assisted Treatment (MAT) Medication-Assisted Treatment (MAT): No - Discharge Instructions Diet, activity, other medical instructions: Diet:as tolerated Activity: as tolerated Other medical instructions: Please follow up with aftercare referral. - Diagnosis (1) Alcohol dependence with uncomplicated withdrawal Current Visit: Yes Status: Chronic (2) Cocaine dependence Current Visit: Yes Status: Chronic Qualifiers: Substance use status: uncomplicated Qualified Code(s): F14.20 - Cocaine dependence, uncomplicated - Follow-up Referral Minutes to complete discharge: 20 - AMA Did Patient Leave Against Medical Advice: No
[2020-01-03] MEDS: NICOTINE 21 MG/24 HOURS TOPICAL PATCH TD SCH (09:35)
[2020-01-03] MEDS: PRENATAL VITAMINS W/ FOLIC ACID TABLET (FP) PO SCH (09:35)
[2020-01-03] MEDS: SERTRALINE HCL 50 MG TABLET (FP) PO SCH (09:35)
--- NOTE | 2020-01-03 14:38 | PN ---
[facility] Progress Note Note: Patient is scheduled for discharge tomorrow. Scripts for 30 days supply of medications(Zoloft 50 mg/day, Risperdal 1 mg/hs) will be electronically transmitted to [facility], [address] [place] [id number]
[2020-01-03] MEDS: risperiDONE 1 MG TABLET PO SCH (21:04)
[2020-01-03] MEDS: THIAMINE HCL 100 MG TABLET (FP) PO SCH (21:04)
[2020-01-03] MEDS: MELATONIN 5 MG TABLETS PO SCH (21:04)
[2020-01-04 07:02] VITALS: BP 116/75; PULSE 78; TEMP 98
[2020-01-04] MEDS: SERTRALINE HCL 50 MG TABLET (FP) PO SCH (09:06)
[2020-01-04] MEDS: PRENATAL VITAMINS W/ FOLIC ACID TABLET (FP) PO SCH (09:06)
[2020-01-04] MEDS: NICOTINE 21 MG/24 HOURS TOPICAL PATCH TD SCH (09:07)
== END 2020-01-04 09:15 | disposition home or self-care (01) | DRG 772 ==
LOC: YASAS 13:19 → Y3E 13:21
PROVIDERS: ADMIT Allergy & Immunology; ATTEND Allergy & Immunology
PROC: HZ42ZZZ Group Counseling for Substance Abuse Treatment, Cognitive-Behavioral (ICD-10-PCS; principal; 2019-12-21)
DX: F10.20 Alcohol dependence, uncomplicated (principal); F14.20 Cocaine dependence, uncomplicated; F17.210 Nicotine dependence, cigarettes, uncomplicated; F31.9 Bipolar disorder, unspecified; F43.21 Adjustment disorder with depressed mood; Z21 Asymptomatic human immunodeficiency virus [HIV] infection status; R56.9 Unspecified convulsions; R63.4 Abnormal weight loss; Z68.34 Body mass index [BMI] 34.0-34.9, adult; Z86.69 Personal history of other diseases of the nervous system and sense organs; Z88.0 Allergy status to penicillin; Z56.0 Unemployment, unspecified; Z59.0 Homelessness
CPT/HCPCS: J2794

== ENCOUNTER 2021-08-05 05:12 | Inpatient (IN) | payer OTHER ==
[2021-08-04 23:58] VITALS: BMI 27.8
[~2021-08-05 05:12] MED LIST changes: -MENTHOL/PHENOL 1 EACH UD MM PRN; -NICOTINE 14 MG/24 HOURS TOPICAL PATCH TD PRN; -NICOTINE POLACRILEX 2 MG GUM BC PRN; +NICOTINE POLACRILEX 2 MG GUM BUC PRN; +guaiFENesin 200 MG/10 ML 10 ML UNIT-DOSE CUPS PO PRN; -guaiFENesin/D-METHORPHAN HB 10 ML UNIT-DOSE CUPS PO PRN
[2021-08-05] MEDS: NICOTINE 14 MG/24 HOURS TOPICAL PATCH TD SCH (09:58)
[2021-08-05] MEDS: hydrOXYzine PAMOATE 25 MG CAPSULE (FP) PO PRN ×2 (09:58→21:28)
[2021-08-05] MEDS: PRENATAL VITAMINS W/ FOLIC ACID TABLET (FP) PO SCH (09:58)
[2021-08-05 11:57] LABS: HEMATOCRIT 33.9 % (35.4-49); HEMOGLOBIN 11.2 GM/dL (11.7-16.9); MCH 27.4 pg (25.7-33.7); MCHC 32.9 g/dl (32.0-35.9); MEAN CELL VOLUME 83.3 fl (80-96); MEAN PLT VOLUME 9.6 fl (7.5-11.1); PLATELET COUNT 194 10^3/uL (134-434); RBC 4.07 M/mm3 (4.00-5.60); RDW 13.1 % (11.9-15.9); WHITE BLOOD COUNT 4.2 K/mm3 (4.0-10.0)
[2021-08-05 13:08] LABS: CREATININE 0.9 mg/dL (0.55-1.3)
[2021-08-05 13:09] LABS: BILIRUBIN,TOTAL 0.5 mg/dL (0.2-1); SYPHILIS W/ RPR CONF REACTIVE (NONREACTIVE)
[2021-08-05 13:10] LABS: CALCIUM 8.2 mg/dL (8.5-10.1)
[2021-08-05 13:11] LABS: BLOOD UREA NITROGEN 7.7 mg/dL (7-18)
[2021-08-05] MEDS: HYDROCORTISONE 1% TOPICAL CREAM 30 GM TUBE TP SCH ×2 (14:05→21:28)
[2021-08-05] MEDS: MELATONIN 5 MG TABLETS PO SCH (21:27)
[2021-08-05] MEDS: THIAMINE HCL 100 MG TABLET (FP) PO SCH (21:28)
[2021-08-06] MEDS: hydrOXYzine PAMOATE 25 MG CAPSULE (FP) PO PRN ×3 (09:37→21:52)
[2021-08-06] MEDS: NICOTINE 14 MG/24 HOURS TOPICAL PATCH TD SCH (09:37)
[2021-08-06] MEDS: PRENATAL VITAMINS W/ FOLIC ACID TABLET (FP) PO SCH (09:37)
[2021-08-06] MEDS: HYDROCORTISONE 1% TOPICAL CREAM 30 GM TUBE TP SCH ×2 (09:37→21:52)
[2021-08-06] MEDS ORDERED: POTASSIUM CHLORIDE TABS 20 MEQ TABLET.ER (FP) PO ONE (11:28)
[2021-08-06 17:14] LABS: EPI CELLS 23 /uL (0-25.1); HYALINE CASTS 2 /uL (0-3.1); PH,URINE 6.5 (5.0-8.0); URINE APPEARANCE CLEAR; URINE BACTERIA 102 /uL (0-1359); URINE BILIRUBIN NEGATIVE (NEGATIVE); URINE COLOR YELLOW; URINE GLUCOSE (UA) NEGATIVE (NEGATIVE); URINE KETONE NEGATIVE (NEGATIVE); URINE LEUK ESTERASE TRACE (NEGATIVE); URINE NITRITE NEGATIVE (NEGATIVE); URINE PROTEIN TRACE (NEGATIVE); URINE RBC 5 /uL (0-23.9); URINE UROBILINOGEN 0.2 mg/dL (0.2-1.0); URINE WBC 26 /uL (0-25.8)
[2021-08-06] MEDS: THIAMINE HCL 100 MG TABLET (FP) PO SCH (21:52)
[2021-08-06] MEDS: MELATONIN 5 MG TABLETS PO SCH (21:52)
[2021-08-06] MEDS: POTASSIUM CHLORIDE TABS 20 MEQ TABLET.ER (FP) PO SCH (21:52)
[2021-08-07] MEDS: POTASSIUM CHLORIDE TABS 20 MEQ TABLET.ER (FP) PO SCH ×2 (10:24→21:16)
[2021-08-07] MEDS: HYDROCORTISONE 1% TOPICAL CREAM 30 GM TUBE TP SCH ×2 (10:24→21:16)
[2021-08-07] MEDS: NICOTINE 14 MG/24 HOURS TOPICAL PATCH TD SCH (10:24)
[2021-08-07] MEDS: hydrOXYzine PAMOATE 25 MG CAPSULE (FP) PO PRN ×2 (10:24→21:17)
[2021-08-07] MEDS: PRENATAL VITAMINS W/ FOLIC ACID TABLET (FP) PO SCH (10:24)
[2021-08-07] MEDS: MELATONIN 5 MG TABLETS PO SCH (21:16)
[2021-08-07] MEDS: THIAMINE HCL 100 MG TABLET (FP) PO SCH (21:17)
[2021-08-08] MEDS: PRENATAL VITAMINS W/ FOLIC ACID TABLET (FP) PO SCH (09:56)
[2021-08-08] MEDS: NICOTINE 14 MG/24 HOURS TOPICAL PATCH TD SCH (09:57)
[2021-08-08] MEDS: hydrOXYzine PAMOATE 25 MG CAPSULE (FP) PO PRN (09:57)
[2021-08-08] MEDS: HYDROCORTISONE 1% TOPICAL CREAM 30 GM TUBE TP SCH ×2 (09:57→21:49)
[2021-08-08] MEDS: POTASSIUM CHLORIDE TABS 20 MEQ TABLET.ER (FP) PO SCH ×2 (09:57→21:48)
[2021-08-08] MEDS ORDERED: COLLOIDAL OATMEAL 1 BAR EACH TP PRN (15:17)
[2021-08-08] MEDS: MINERAL OIL/PETROLAT/WATER TOPICAL CREAM 113 GM JAR TP SCH (15:56)
[2021-08-08] MEDS: THIAMINE HCL 100 MG TABLET (FP) PO SCH (21:47)
[2021-08-08] MEDS: MELATONIN 5 MG TABLETS PO SCH (21:48)
[2021-08-09] MEDS: MINERAL OIL/PETROLAT/WATER TOPICAL CREAM 113 GM JAR TP SCH (11:27)
[2021-08-09] MEDS: POTASSIUM CHLORIDE TABS 20 MEQ TABLET.ER (FP) PO SCH ×2 (11:27→22:06)
[2021-08-09] MEDS: NICOTINE 14 MG/24 HOURS TOPICAL PATCH TD SCH (11:28)
[2021-08-09] MEDS: HYDROCORTISONE 1% TOPICAL CREAM 30 GM TUBE TP SCH ×2 (11:28→22:06)
[2021-08-09] MEDS: PRENATAL VITAMINS W/ FOLIC ACID TABLET (FP) PO SCH (11:28)
[2021-08-09 16:11] LABS: SARS-CoV-2 NAA Not Detected (Not Detected)
[2021-08-09] MEDS: hydrOXYzine PAMOATE 25 MG CAPSULE (FP) PO PRN (22:06)
[2021-08-09] MEDS: THIAMINE HCL 100 MG TABLET (FP) PO SCH (22:07)
[2021-08-09] MEDS: MELATONIN 5 MG TABLETS PO SCH (22:07)
[2021-08-10] MEDS: PRENATAL VITAMINS W/ FOLIC ACID TABLET (FP) PO SCH (10:05)
[2021-08-10] MEDS: POTASSIUM CHLORIDE TABS 20 MEQ TABLET.ER (FP) PO SCH ×2 (10:05→22:54)
[2021-08-10] MEDS: HYDROCORTISONE 1% TOPICAL CREAM 30 GM TUBE TP SCH ×2 (10:06→22:55)
[2021-08-10] MEDS: MINERAL OIL/PETROLAT/WATER TOPICAL CREAM 113 GM JAR TP SCH (10:06)
[2021-08-10] MEDS: NICOTINE 14 MG/24 HOURS TOPICAL PATCH TD SCH (11:13)
[2021-08-10] MEDS: hydrOXYzine PAMOATE 25 MG CAPSULE (FP) PO PRN ×2 (13:35→22:54)
[2021-08-10] MEDS: THIAMINE HCL 100 MG TABLET (FP) PO SCH (22:54)
[2021-08-10] MEDS: MELATONIN 5 MG TABLETS PO SCH (22:54)
[2021-08-11 07:15] VITALS: BP 110/68; PULSE 96; TEMP 98.2
[2021-08-11] MEDS: MINERAL OIL/PETROLAT/WATER TOPICAL CREAM 113 GM JAR TP SCH (11:16)
[2021-08-11] MEDS: NICOTINE 14 MG/24 HOURS TOPICAL PATCH TD SCH (11:16)
[2021-08-11] MEDS: HYDROCORTISONE 1% TOPICAL CREAM 30 GM TUBE TP SCH (11:16)
[2021-08-11] MEDS: PRENATAL VITAMINS W/ FOLIC ACID TABLET (FP) PO SCH (11:16)
[2021-08-11] MEDS: POTASSIUM CHLORIDE TABS 20 MEQ TABLET.ER (FP) PO SCH (11:16)
== END 2021-08-11 11:25 | disposition home or self-care (01) | DRG 772 ==
LOC: YASAS 05:12 → Y5N 05:13
PROVIDERS: ADMIT Allergy & Immunology; ATTEND Allergy & Immunology
PROC: HZ42ZZZ Group Counseling for Substance Abuse Treatment, Cognitive-Behavioral (ICD-10-PCS; principal; 2021-08-05)
DX: F14.20 Cocaine dependence, uncomplicated (principal); F17.210 Nicotine dependence, cigarettes, uncomplicated; F19.280 Other psychoactive substance dependence with psychoactive substance-induced anxiety disorder; F19.282 Other psychoactive substance dependence with psychoactive substance-induced sleep disorder; F39 Unspecified mood [affective] disorder; Z21 Asymptomatic human immunodeficiency virus [HIV] infection status; E87.6 Hypokalemia; L30.9 Dermatitis, unspecified; R73.9 Hyperglycemia, unspecified; R76.11 Nonspecific reaction to tuberculin skin test without active tuberculosis; Z86.19 Personal history of other infectious and parasitic diseases; Z88.0 Allergy status to penicillin; Z91.14 Patient's other noncompliance with medication regimen
CPT/HCPCS: 36415; 71046-TC-FY; 80053; 81003; 85027; 86593; 86780; 86803; C9803; U0003; U0005